=== PATIENT | female | born 1980 | race Caucasian/White ===

== ENCOUNTER 2017-01-26 04:58 | Observation (INO) | payer MEDICARE, MEDICAID ==
[2017-01-26] MEDS ORDERED: HYDROmorphone* 1 MG/ML 1 ML SYR IV ONE ×2 (05:03→05:44)
[2017-01-26] MEDS ORDERED: Ondansetron INJ* 2 MG/ML VIAL IV ONE ×2 (05:03→08:36)
[2017-01-26] MEDS: NS 0.9% 1000 ML* 2,000 ML IV ONE ×2 (05:26→07:17)
[2017-01-26 05:35] LABS: Hematocrit 41 % (35-47); Hemoglobin 13.9 g/dl (12.0-16.0); Mean Corpuscular HGB Conc 34 g/dl (31-36); Mean Corpuscular Hemoglobin 30 pg (27-31); Mean Corpuscular Volume 91 fL (80-97); Mean Platelet Volume 7 um3 (7.4-10.4); Red Blood Count 4.57 10^6/ul (4.0-5.4); Red Cell Distribution Width 19 % (10.5-15); White Blood Count 9.2 10^3/ul (3.5-10.8)
[2017-01-26 05:37] LABS: Add Diff/Slide Review? Slide Review Added; Comments Flag Yes
[2017-01-26] MEDS ORDERED: LORazepam INJ* 2 MG/ML 1 ML VIAL IV PUSH ONE (05:45)
[2017-01-26 05:46] LABS: BUN/Creatinine Ratio 23.1 (8-20); C Reactive Protein 2.79 mg/L (< 5.00); Calcium 9.4 mg/dL (8.6-10.3); EGFR African American 132.6 (>60); EGFR Non-African American 103.1 (>60); Magnesium 1.4 mg/dL (1.9-2.7); Potassium 3.5 mmol/L (3.5-5.0); Total Bilirubin 0.4 mg/dL (0.2-1.0)
[2017-01-26] MEDS ORDERED: Magnesium Sulfate 2 GM IV* 2 GM/50 ML BAG IVPB ONE (05:46)
[2017-01-26 06:40] LABS: Urine Bacteria Absent (Absent); Urine Bilirubin Negative (Negative); Urine Glucose Negative (Negative); Urine Nitrite Negative (Negative)
[2017-01-26 06:41] LABS: Urine Bacteria Absent (Absent); Urine Bilirubin Negative (Negative); Urine Glucose Negative (Negative); Urine Nitrite Negative (Negative)
--- NOTE | 2017-01-26 06:53 | ED ---
Arik Lebron Rebecca, scribed for Sue Marmolejo MD on 01/26/17 at 0507 . Abdominal Pain/Female - HPI Summary HPI Summary: Patient is a 36 y/o F BIBA who presents to ED c/o acute on chronic diffuse abdominal pain. Pain worsened 3 days ago and has been constant since onset. Pain is currently severe, ranked 10/10. Additionally c/o vomiting for 3 days. Sx aggravated and alleviated by nothing, unchanged by Zofran taken yesterday morning. PMHx ovarian CA for which her last chemotherapy treatment was in June,. She is not currently undergoing cheotherapy. PSHx ureteral stent placement. - History of Current Complaint Stated Complaint: NAUSEA VOMITING Hx Obtained From: Patient Hx Last Menstrual Period: age 25 yrs Onset/Duration: Gradual Onset, Still Present Severity Currently: Severe Pain Intensity: 10 Pain Scale Used: 0-10 Numeric Aggravating Factor(s): Nothing Alleviating Factor(s): Nothing Associated Signs and Symptoms: Positive: Vomiting Allergies/Adverse Reactions: Allergies Allergy/AdvReac Type Severity Reaction Status Date / Time Adhesive Tape Allergy Severe SKIN Verified 01/26/17 05:05 REACTION Carboplatin Allergy Severe Anaphylatic Verified 01/26/17 05:05 Shock Iohexol Allergy See Comment Verified 01/26/17 05:32 Latex Allergy Unknown Verified 01/26/17 05:05 Reaction Details Penicillins [PCN] Allergy Unknown Verified 01/26/17 05:05 Reaction Details Tapentadol [From Nucynta] Allergy Hallucinati Verified 01/26/17 05:05 ons Doxycycline AdvReac Intermediate Vomiting Verified 01/26/17 05:05 IV contrast Allergy Vomiting Uncoded 01/26/17 06:44 Home Medications: Home Medications HYDROmorphone TAB* [Dilaudid TAB*] 8 mg PO Q4H PRN 01/26/17 [History Confirmed 01/26/17] Methadone TAB* [Dolophine TAB*] 15 mg PO Q8H PRN 01/26/17 [History Confirmed ] PMH/Surg Hx/FS Hx/Imm Hx Respiratory History: Reports: Other Respiratory Problems/Disorders - PMHx Bronchitis - Cancer History Cancer Type, Location and Year: Ovarian - Surgical History Surgery Procedure, Year, and Place: PARTIAL HYSTERECTOMY. ABDOMINAL SURGERY 09/09. APPENDECTOMY. CHOLECYSTECTOMY. TONSILLECTOMY- JUN 2014. BILAT SALPINGECTOMY/OOPHERECTOMY. URETER STENT Infectious Disease History: Reports: Hx Shingles - age 26 Denies: Hx Clostridium Difficile, Hx Hepatitis, Hx Human Immunodeficiency Virus (HIV), Hx of Known/Suspected MRSA, Hx Tuberculosis, Hx Known/Suspected VRE , Hx Known/Suspected VRSA, History Other Infectious Disease - Family History Known Family History: Negative: Cardiac Disease - Social History Alcohol Use: None Substance Use Type: Reports: None Smoking Status (MU): Heavy Every Day Tobacco Smoker Type: Cigarettes Amount Used/How Often: 1/2 PPD Length of Time of Smoking/Using Tobacco: 21 Years Have You Smoked in the Last Year: Yes Review of Systems Constitutional: Negative Eyes: Negative ENT: Negative Cardiovascular: Negative Respiratory: Negative Positive: Abdominal Pain, Vomiting Positive: no symptoms reported Musculoskeletal: Negative Skin: Negative Neurological: Negative Psychological: Normal All Other Systems Reviewed And Are Negative: Yes Physical Exam - Summary Physical Exam Summary: General: Well appearing, moaning in pain Skin: Warm, Skin Color Reflects Adequate Perfusion, Dry Eyes: EOMI, BHAVIK ENT: Pharynx normal, TMs normal Neck: Supple, nontender Respiratory: CTA, breath sounds present, no rhonchi, no wheezes, no rales Cardiovascular: RRR, no murmur, no rub, no gallop Abdomen: Soft, nontender, Non-distended, no guarding, no rebound, multiple incisions on the abdomen Bowel: Not present Musculoskeletal: KATHLEEN, No edema Neuro: Sensory/motor intact, A&Ox3, CN intact 2-12 Psych: Affect/mood appropriate Triage Information Reviewed: Yes Vital Signs On Initial Exam: Initial Vitals Temp Pulse Resp BP Pulse Ox 98.4 F 90 16 132/79 99 01/26/17 05:03 01/26/17 05:03 01/26/17 05:03 01/26/17 05:03 01/26/17 05:03 Vital Signs Reviewed: Yes Diagnostics - Vital Signs Vital Signs Temp Pulse Resp BP Pulse Ox 01/26/17 06:30 109/58 01/26/17 06:15 75 107/51 98 01/26/17 06:10 16 01/26/17 06:03 78 100 01/26/17 06:01 120/81 01/26/17 06:00 18 01/26/17 05:30 80 131/84 99 01/26/17 05:28 20 01/26/17 05:23 76 100 01/26/17 05:21 105/86 01/26/17 05:03 98.4 F 90 16 132/79 99 - Laboratory Lab Results: Lab Results 01/26/17 01/26/17 01/26/17 Range/Units 05:15 05:15 05:15 WBC 9.2 (3.5-10.8) 10^3/ul RBC 4.57 (4.0-5.4) 10^6/ul Hgb 13.9 (12.0-16.0) g/dl Hct 41 (35-47) % MCV 91 (80-97) fL MCH 30 (27-31) pg MCHC 34 (31-36) g/dl RDW 19 H (10.5-15) % Plt Count 322 (150-450) 10^3/ul MPV 7 L (7.4-10.4) um3 Neut % (Auto) 80.2 (38-83) % Lymph % (Auto) 12.3 L (25-47) % [place] % (Auto) 6.3 (1-9) % Eos % (Auto) 0.7 (0-6) % Baso % (Auto) 0.5 (0-2) % Absolute Neuts (auto) 7.3 (1.5-7.7) 10^3/ul Absolute Lymphs (auto) 1.1 (1.0-4.8) 10^3/ul Absolute Monos (auto) 0.6 (0-0.8) 10^3/ul Absolute Eos (auto) 0.1 (0-0.6) 10^3/ul Absolute Basos (auto) 0.1 (0-0.2) 10^3/ul Absolute Nucleated RBC 0 10^3/ul Nucleated RBC % 0 Sodium 136 (133-145) mmol/L Potassium 3.5 (3.5-5.0) mmol/L Chloride 100 L (101-111) mmol/L Carbon Dioxide 24 (22-32) mmol/L Anion Gap 12 H (2-11) mmol/L BUN 15 (6-24) mg/dL Creatinine 0.65 (0.51-0.95) mg/dL Est GFR ( Amer) 132.6 (>60) Est GFR (Non-Af Amer) 103.1 (>60) BUN/Creatinine Ratio 23.1 H (8-20) Glucose 86 (70-100) mg/dL Lactic Acid 0.7 (0.5-2.0) mmol/L Calcium 9.4 (8.6-10.3) mg/dL Magnesium 1.4 L (1.9-2.7) mg/dL Total Bilirubin 0.40 (0.2-1.0) mg/dL AST 12 L (13-39) U/L ALT 10 (7-52) U/L Alkaline Phosphatase 80 (34-104) U/L C-Reactive Protein 2.79 (< 5.00) mg/L Total Protein 7.0 (6.4-8.9) g/dL Albumin 4.0 (3.2-5.2) g/dL Globulin 3.0 (2-4) g/dL Albumin/Globulin Ratio 1.3 (1-3) Lipase 16 (11.0-82.0) U/L Urine Color Urine Appearance Urine pH (5-9) Ur Specific [place] (1.010-1.030) Urine Protein (Negative) Urine Ketones (Negative) Urine Blood (Negative) Urine Nitrate (Negative) Urine Bilirubin (Negative) Urine Urobilinogen (Negative) Ur Leukocyte Esterase (Negative) Urine WBC (Auto) (Absent) Urine RBC (Auto) (Absent) Calcium Oxalate Crystal (Absent) Urine Bacteria (Absent) Urine Glucose (Negative) 01/26/17 01/26/17 Range/Units 06:20 06:22 WBC (3.5-10.8) 10^3/ul RBC (4.0-5.4) 10^6/ul Hgb (12.0-16.0) g/dl Hct (35-47) % MCV (80-97) fL MCH (27-31) pg MCHC (31-36) g/dl RDW (10.5-15) % Plt Count (150-450) 10^3/ul MPV (7.4-10.4) um3 Neut % (Auto) (38-83) % Lymph % (Auto) (25-47) % [place] % (Auto) (1-9) % Eos % (Auto) (0-6) % Baso % (Auto) (0-2) % Absolute Neuts (auto) (1.5-7.7) 10^3/ul Absolute Lymphs (auto) (1.0-4.8) 10^3/ul Absolute Monos (auto) (0-0.8) 10^3/ul Absolute Eos (auto) (0-0.6) 10^3/ul Absolute Basos (auto) (0-0.2) 10^3/ul Absolute Nucleated RBC 10^3/ul Nucleated RBC % Sodium (133-145) mmol/L Potassium (3.5-5.0) mmol/L Chloride (101-111) mmol/L Carbon Dioxide (22-32) mmol/L Anion Gap (2-11) mmol/L BUN (6-24) mg/dL Creatinine (0.51-0.95) mg/dL Est GFR ( Amer) (>60) Est GFR (Non-Af Amer) (>60) BUN/Creatinine Ratio (8-20) Glucose (70-100) mg/dL Lactic Acid (0.5-2.0) mmol/L Calcium (8.6-10.3) mg/dL Magnesium (1.9-2.7) mg/dL Total Bilirubin (0.2-1.0) mg/dL AST (13-39) U/L ALT (7-52) U/L Alkaline Phosphatase (34-104) U/L C-Reactive Protein (< 5.00) mg/L Total Protein (6.4-8.9) g/dL Albumin (3.2-5.2) g/dL Globulin (2-4) g/dL Albumin/Globulin Ratio (1-3) Lipase (11.0-82.0) U/L Urine Color Yellow Yellow Urine Appearance Cloudy Cloudy Urine pH 5.0 5.0 (5-9) Ur Specific [place] 1.026 1.025 (1.010-1.030) Urine Protein 2+(100 mg/dl) H 2+(100 mg/dl) H (Negative) Urine Ketones 2+ H 2+ H (Negative) Urine Blood 2+ H 3+ H (Negative) Urine Nitrate Negative Negative (Negative) Urine Bilirubin Negative Negative (Negative) Urine Urobilinogen Negative Negative (Negative) Ur Leukocyte Esterase 3+ H 2+ H (Negative) Urine WBC (Auto) 3+(>20/hpf) H 3+(>20/hpf) H (Absent) Urine RBC (Auto) 3+(>10/hpf) H 3+(>10/hpf) H (Absent) Calcium Oxalate Crystal Present H Present H (Absent) Urine Bacteria Absent Absent (Absent) Urine Glucose Negative Negative (Negative) Result Diagrams: 01/26/17 05:15 01/26/17 05:15 Lab Statement: Any lab studies that have been ordered have been reviewed, and results considered in the medical decision making process. - CT Abd/Pel CT CT Interpretation: Positive (See Comments) - Probable calcified subserosal perihepatic and perisplenic metasteses, which may be old. Anterior adbominal pelvic wall calcified masses are suspicious for metastases with possible peritoneal extension. Large amount of diffuse solid stool, may indicate fecal impaction. A sigmoid lesion is difficult to exclude without contrast. Possible diffuse peritoneal metastatic disease. No hydronephrosis. CT Interpretation Completed By: Radiologist Abdominal Pain Fem Course/Dx - Course Course Of Treatment: 36 yo female with metastatic ovarian cancer here with abdominal pain and vomiting. pt required 2mg of dilaudid and 1 mg of ativan to begin to control her pain, case was discussed with Dr. Glass he will have someone from hem/onc to see her this am. Pt will be signed out to Dr. Bull - Diagnoses Provider Diagnoses: Cancer related pain Discharge - Discharge Plan Condition: Stable Disposition: ADMITTED TO [facility] The documentation as recorded by the Arik zuniga Rebecca accurately reflects the service I personally performed and the decisions made by me, Sue Marmolejo MD.
[2017-01-26] MEDS ORDERED: HYDROmorphone* 2 MG/ML 1 ML SYR IV SLOW PU ONE (08:22)
[2017-01-26] MEDS ORDERED: Ondansetron INJ* 2 MG/ML VIAL IV PRN (09:08)
[2017-01-26] MEDS ORDERED: HYDROmorphone* 2 MG/ML 1 ML SYR IV SLOW PU PRN (09:08)
[2017-01-26] MEDS ORDERED: LORazepam INJ* 2 MG/ML 1 ML VIAL IV PUSH PRN (09:15)
--- NOTE | 2017-01-26 09:52 | RAD ---
CLINICAL HISTORY: Abdominal pain in a woman with a history of ovarian cancer. Relevant surgical history includes hysterectomy with bilateral salpingectomy and oopherectomy, appendectomy, cholecystectomy, ureteral stent placement and "abdominal surgery 09/09/2013" COMPARISON: Similar CT examination dated November 24, 2014 TECHNIQUE: Noncontrast CT examination of the abdomen and pelvis from the lung bases through the initial tuberosities. FINDINGS: VISUALIZED LUNG BASES: The lungs exhibit centrilobular emphysematous changes that appear advanced for the patient's age. Lung bases are otherwise clear without pleural effusions. ABDOMEN AND PELVIS: Unless otherwise specified comparisons made below reference the November 24, 2014 CT examination. Evaluation of the solid organs and vasculature is limited without intravenous contrast. Since the prior CT examination there is coarse calcification overlying the dome of the liver, best depicted in the coronal plane images (image 23 through 47) that has enlarged since the prior CT examination. In the left lobe of the liver abutting the falciform ligament is a focus of coarse calcification measuring 2.3 cm in greatest axial dimension not seen on the previous CT examination. At the posterior subcapsular liver (image 21 of 92 at likely segment 6 of the liver there is a 1.9 cm coarse calcification that was not seen on the previous CT examination. Along the medial margin of the spleen there is a focus of coarse calcification measuring approximately 1.3 cm that has grown from 3 mm on the previous CT examination. The spleen is otherwise homogenous in attenuation. The pancreas and adrenal glands are grossly normal in appearance within the limitations of a noncontrast CT exam. Surgical clips in the gallbladder fossa are consistent with the patient's history of cholecystectomy. The kidneys do not exhibit definite hydronephrosis. There are bilateral percutaneous nephrostomy stents as well as bilateral ureteral stents that appear to be appropriately positioned. There are surgical clips tracking along the right inguinal and iliac chain continuous with surgical clips seen in the right of midline retroperitoneum. There are also surgical clips at the left upper quadrant (image 35) adjacent to a focus of coarse calcification measuring 1.6 cm in greatest dimension, previously 6 mm. Soft tissue lesions with varying degrees of calcification are seen throughout the abdomen and pelvis since the previous CT examination. Between the anterior abdominal wall and subcutaneous fat at the right hemiabdomen there is a 1.5 cm soft tissue lesion with a mild peripheral rim of calcification (image 35). Slightly more superiorly and at the midline there is hyper attenuating lobular soft tissue density in the subcutaneous fat measuring 3.7 cm in length. Presumably at the umbilicus there is a mostly fat containing soft tissue nodule in the subcutaneous fat that distends the overlying dermis measuring 3 cm (image 47). At the low left of midline anterior abdominal wall there is a mixed attenuation soft tissue mass measuring 4.9 cm x 3.7 cm in the axial plane (image 68). This soft tissue mass appears to originate from within the abdominal wall musculature, replacing the abdominal wall musculature. It is contiguous with partially calcified material seen in the anteriormost peritoneal cavity. In the left hemipelvis there is a very poorly defined soft tissue mass immediately anterior to the rectum and posterior and slightly inferior to the urinary bladder measuring up to 4.7 x 7.1 cm in the axial plane. The anterior left-sided rib of this soft tissue mass is coarsely calcified. There is moderate ascites throughout much of the peritoneal cavity. Evaluation of the gastrointestinal tract is limited without oral contrast. The small bowel is very poorly defined but does not appear pathologically enlarged. There is a large amount of stool throughout the length of the colon and the colon is pathologically dilated up to 6 cm in diameter (for example coronal image 22 of 76). There is a large amount of gas in the rectum just above the anal sphincter. This appearance is more consistent with colonic ileus as opposed to focal obstruction. The abdominal aorta and iliac arteries are normal in course and diameter. There are no sinister bone lesions. IMPRESSION: 1. Consistent with the patient's reported oncologic history, there has been interval appearance of widespread partially calcified metastases involving the liver, abdominal wall and peritoneal cavity as well as mild to moderate degree of ascites. I anticipate the patient has had more CTs since the November 24, 2014 CT examination available for comparison at another institution. 2. There is no significant hydronephrosis in the presence of bilateral percutaneous nephrostomy tubes and bilateral ureteral stents. 3. The entire stool-filled colon is dilated with appearance more consistent with colonic ileus than focal obstruction.
[2017-01-26] MEDS ORDERED: Methadone TAB* 10 MG PO SCH ×2 (10:00)
[2017-01-26] MEDS ORDERED: MAGNESIUM SULFATE IVPB ONE (10:00)
[2017-01-26] MEDS ORDERED: NS 0.9% IVPB ONE (10:00)
[2017-01-26] MEDS: Metoclopramide IV* 5 MG/ML 2 ML VIAL IV SCH ×3 (11:00→23:46)
[2017-01-26] MEDS: Famotidine IV* 10 MG/ML 2 ML (20 mg) IV SCH (11:00)
[2017-01-26] MEDS: Enoxaparin(*) 40 MG/0.4 ML SYR SUBCUT SCH (11:01)
[2017-01-26] MEDS: Methadone TAB* 10 MG PO SCH ×3 (11:01→23:45)
[2017-01-26] MEDS: HYDROmorphone* 2 MG/ML 1 ML SYR IV SLOW PU PRN ×6 (11:36→23:54)
[2017-01-26] MEDS ORDERED: NS 0.9% 1000 ML* 1,000 ML IV SCH (15:00)
[2017-01-26] MEDS ORDERED: Nicotine Patch Removal NOTE PATCH OFF SCH (20:00)
[2017-01-26] MEDS ORDERED: Mouth Piece, Nicotine* 1 EACH CARTRIDGE INH ONE (21:00)
[2017-01-26] MEDS ORDERED: Nicotine Inhaler* 10 MG AMP Q2H PRN CRAVING INH (21:00)
[2017-01-27] MEDS: HYDROmorphone* 2 MG/ML 1 ML SYR IV SLOW PU PRN ×5 (01:51→11:16)
[2017-01-27 04:18] VITALS: BP 102/56
[2017-01-27] MEDS: Methadone TAB* 10 MG PO SCH ×2 (06:03→11:03)
[2017-01-27] MEDS: Metoclopramide IV* 5 MG/ML 2 ML VIAL IV SCH (06:04)
[2017-01-27] MEDS ORDERED: Nicotine PATCH 21 MG/24 HR* PATCH TRANSDERM SCH (08:00)
[2017-01-27] MEDS: Enoxaparin(*) 40 MG/0.4 ML SYR SUBCUT SCH (09:10)
[2017-01-27] MEDS: Famotidine IV* 10 MG/ML 2 ML (20 mg) IV SCH (09:14)
[2017-01-27 09:52] LABS: Albumin 3.2 g/dL (3.2-5.2); BUN/Creatinine Ratio 15.3 (8-20); Calcium 8.3 mg/dL (8.6-10.3); EGFR African American 148.3 (>60); EGFR Non-African American 115.3 (>60); Globulin 2.3 g/dL (2-4); Potassium 3.6 mmol/L (3.5-5.0); Total Bilirubin 0.4 mg/dL (0.2-1.0); Total Protein 5.5 g/dL (6.4-8.9)
--- NOTE | 2017-01-27 10:32 | DS ---
- Discharge Summary BRIEF OBV DISCHARGE SUMMARY ADMIT DATE: 01/26/2017 DISCHARGE DATE: 01/27/2017 DISCHARGE DIAGNOSIS: 1. Ileus 2. metastatic end stage ovarian cancer 3. intractable pain DISCHARGE MEDICATIONS: Home Medications Medication Instructions Recorded Confirmed Type HYDROmorphone TAB* [Dilaudid Tab*] 8 mg PO Q4H PRN 01/26/17 01/26/17 History Methadone TAB* [Dolophine TAB*] 15 mg PO Q8H PRN 01/26/17 01/26/17 History PATIENT STATES THAT SHE HAS ENEMAS AT HOME Hospital course: see full admit H+P. This am Chikis has not had a bowel movement and is still nauseous but very much wants to be discharged. She reports that she understands that she is dying and has no further treatment options. She is interested in an outpatient hospice consult, but did not want to stay for one. Her nephrostomy tubes were clamped over night and her creatinine remained stable. I offered to have them removed today but she reports that she has an appointment at 3:45 with her urologist, Dr. Durham and wants to wait until them. I have encouraged her to stay inpatient until we can get her bowels moving, however she reports that it is very important for her to be able to leave to smoke marijuana as this is the only thing that helps her. She does not want marinol. She requested discharge and so will be discharged at her request now. >30 mins spent, >50% in face to face counseling
== END 2017-01-27 11:30 | disposition home or self-care (01) ==
LOC: ED 04:58 → MED 09:08 → INTOOBSV 09:08
PROVIDERS: ADMIT Internal Medicine Hematology & Oncology; ATTEND Internal Medicine Hematology & Oncology
DX: K56.7 Ileus, unspecified (principal); C56.9 Malignant neoplasm of unspecified ovary; R10.9 Unspecified abdominal pain; R11.10 Vomiting, unspecified; F17.210 Nicotine dependence, cigarettes, uncomplicated
CPT/HCPCS: 36415; 74176; 80053; 81003; 81015; 83605; 83690; 83735; 85025; 86140; 87040; 87086; 96374; 96375; 99223; 99283; A9270-GY; G0378; J1170; J1642; J1650; J2060; J2405; J3475

== ENCOUNTER 2017-02-02 08:07 | Inpatient (IN) | payer MEDICARE, MEDICAID ==
[2017-02-02] MEDS ORDERED: LORazepam INJ* 2 MG/ML 1 ML VIAL IV ONE (08:51)
[2017-02-02] MEDS ORDERED: Ondansetron INJ* 2 MG/ML VIAL IV ONE (08:51)
[2017-02-02] MEDS ORDERED: NS 0.9% 1000 ML* 1,000 ML IV ONE (08:51)
[2017-02-02] MEDS ORDERED: HYDROmorphone* 1 MG/ML 1 ML SYR IV ONE ×2 (08:51→09:51)
[2017-02-02 09:41] LABS: Hematocrit 39 % (35-47); Mean Corpuscular HGB Conc 34 g/dl (31-36); Mean Corpuscular Hemoglobin 32 pg (27-31); Mean Corpuscular Volume 94 fL (80-97); Mean Platelet Volume 7 um3 (7.4-10.4); Red Blood Count 4.11 10^6/ul (4.0-5.4); Red Cell Distribution Width 17 % (10.5-15); White Blood Count 8.7 10^3/ul (3.5-10.8)
[2017-02-02 09:56] LABS: Albumin 3.8 g/dL (3.2-5.2); BUN/Creatinine Ratio 24.6 (8-20); C Reactive Protein 1.61 mg/L (< 5.00); EGFR African American 142.7 (>60); Globulin 2.6 g/dL (2-4); Potassium 3.6 mmol/L (3.5-5.0); Total Bilirubin 0.4 mg/dL (0.2-1.0); Total Protein 6.4 g/dL (6.4-8.9)
[2017-02-02] MEDS ORDERED: HYDROmorphone* 1 MG/ML 1 ML SYR IV SLOW PU ONE (10:49)
[2017-02-02] MEDS ORDERED: LORazepam INJ* 2 MG/ML 1 ML VIAL IV PUSH ONE (10:49)
[2017-02-02 10:52] LABS: Urine Bacteria 1+ (Absent); Urine Bilirubin Negative (Negative); Urine Glucose Negative (Negative); Urine Nitrite Negative (Negative)
[2017-02-02] MEDS ORDERED: NS 0.9% 1000 ML* 1,000 ML IV SCH (11:00)
[2017-02-02] MEDS ORDERED: Sodium Phosphate ADULT ENEMA* 118 ml bottle PR ONE (11:10)
--- NOTE | 2017-02-02 11:11 | ED ---
Sharon Lebron Thomas, scribed for Lance Juarez MD on 02/02/17 at 0853 . Abdominal Pain/Female - HPI Summary HPI Summary: Pt is a 36 y/o with a Hx of Ovarian CA presenting to the ED c/o abd pain. She additionally c/o constipation and nausea. She has been unable to defecate for 6 weeks. She was admitted to [facility] 7 days ago for stomach pain. She has been unable to take pain meds since yesterday. She is not in hospice or palliative care. She was diagnosed with CA 18 years ago and was recently given a terminal diagnosis. - History of Current Complaint Chief Complaint: EDAbdPain Stated Complaint: constipation-6WKS Time Seen by Provider: 02/02/17 08:31 Hx Obtained From: Patient Hx Last Menstrual Period: age 25 yrs Timing: Constant Severity Currently: Severe Pain Intensity: 8 Pain Scale Used: 0-10 Numeric Aggravating Factor(s): Nothing Alleviating Factor(s): Nothing Associated Signs and Symptoms: Positive: Nausea, Other: - POS: constipation Allergies/Adverse Reactions: Allergies Allergy/AdvReac Type Severity Reaction Status Date / Time Adhesive Tape Allergy Severe SKIN Verified 02/02/17 08:27 REACTION Carboplatin Allergy Severe Anaphylatic Verified 02/02/17 08:27 Shock Iohexol Allergy See Comment Verified 02/02/17 08:27 Latex Allergy Unknown Verified 02/02/17 08:27 Reaction Details Penicillins [PCN] Allergy Unknown Verified 02/02/17 08:27 Reaction Details Tapentadol [From Nucynta] Allergy Hallucinati Verified 02/02/17 08:27 ons Doxycycline AdvReac Intermediate Vomiting Verified 02/02/17 08:27 IV contrast Allergy Vomiting Uncoded 01/26/17 06:44 Home Medications: Home Medications Ondansetron TAB* [Zofran 4 MG Tab*] 8 mg PO Q6H 02/02/17 [History Confirmed ] PMH/Surg Hx/FS Hx/Imm Hx Previously Healthy: No Respiratory History: Reports: Other Respiratory Problems/Disorders - PMHx Bronchitis Denies: Hx Chronic Obstructive Pulmonary Disease (COPD) GI History: Reports: Hx Gall Bladder Disease History: Reports: Other Problems/Disorders - HYDRONEPHROSIS, BILAT NEPHROSTOMIES, UTRERAL STENT Musculoskeletal History: Reports: Hx Back Problems Sensory History: Reports: Hx Contacts or Glasses Denies: Hx Hearing Aid Opthamlomology History: Reports: Hx Contacts or Glasses Neurological History: Reports: Hx Transient Ischemic Attacks (TIA) - PER PT. Denies: Hx Migraine, Hx Nerve Disease Psychiatric History: Reports: Hx Anxiety Denies: Hx Depression - Cancer History Cancer Type, Location and Year: Ovarian - METS - Surgical History Surgery Procedure, Year, and Place: PARTIAL HYSTERECTOMY. ABDOMINAL SURGERY 09/09. APPENDECTOMY. CHOLECYSTECTOMY. TONSILLECTOMY- JUN 2014. BILAT SALPINGECTOMY/OOPHERECTOMY. URETER STENT. bilat nephrostomies Infectious Disease History: No Infectious Disease History: Reports: Hx Clostridium Difficile, Hx Shingles - age 26 Denies: Hx Hepatitis, Hx Human Immunodeficiency Virus (HIV), Hx of Known/ Suspected MRSA, Hx Tuberculosis, Hx Known/Suspected VRE, Hx Known/Suspected VRSA , History Other Infectious Disease, Traveled Outside the in Last 30 Days - Family History Known Family History: Negative: Cardiac Disease - Social History Alcohol Use: None Substance Use Type: Reports: Marijuana Smoking Status (MU): Heavy Every Day Tobacco Smoker Type: Cigarettes Amount Used/How Often: 1/2 PPD Length of Time of Smoking/Using Tobacco: 21 Years Have You Smoked in the Last Year: Yes Review of Systems Constitutional: Negative Eyes: Negative ENT: Negative Cardiovascular: Negative Respiratory: Negative Positive: Abdominal Pain, Nausea, Other - POS: constipation, 6 weeks Genitourinary: Negative Musculoskeletal: Negative Skin: Negative Neurological: Negative Psychological: Normal All Other Systems Reviewed And Are Negative: Yes Physical Exam Triage Information Reviewed: Yes Vital Signs On Initial Exam: Initial Vitals Temp Pulse Resp BP Pulse Ox 98.5 F 103 22 122/90 96 02/02/17 08:15 02/02/17 08:15 02/02/17 08:15 02/02/17 08:15 02/02/17 08:15 Vital Signs Reviewed: Yes Appearance: Positive: Pain Distress - obvious distress Skin: Positive: Warm, Skin Color Reflects Adequate Perfusion, Dry Head/Face: Positive: Normal Head/Face Inspection Eyes: Positive: Normal ENT: Positive: Normal ENT inspection Neck: Positive: Supple, Nontender Abdomen Description: Positive: Nontender Bowel Sounds: Positive: Hyperactive Musculoskeletal: Positive: Normal, Strength/ROM Intact Neurological: Positive: Normal, Sensory/Motor Intact, Alert, Oriented to Person Place, Time, CN Intact II-III Psychiatric: Positive: Normal, Affect/Mood Appropriate Diagnostics - Vital Signs Vital Signs Temp Pulse Resp BP Pulse Ox 02/02/17 08:30 93 123/91 97 02/02/17 08:26 87 98 02/02/17 08:25 134/88 02/02/17 08:18 98.5 F 102 22 122/90 96 02/02/17 08:15 98.5 F 103 22 122/90 96 - Laboratory Lab Results: Lab Results 02/02/17 02/02/17 02/02/17 Range/Units 09:30 09:30 10:05 WBC 8.7 (3.5-10.8) 10^3/ul RBC 4.11 (4.0-5.4) 10^6/ul Hgb 13.0 (12.0-16.0) g/dl Hct 39 (35-47) % MCV 94 (80-97) fL MCH 32 H (27-31) pg MCHC 34 (31-36) g/dl RDW 17 H (10.5-15) % Plt Count 264 (150-450) 10^3/ul MPV 7 L (7.4-10.4) um3 Neut % (Auto) 83.5 H (38-83) % Lymph % (Auto) 9.7 L (25-47) % [place] % (Auto) 5.2 (1-9) % Eos % (Auto) 0.9 (0-6) % Baso % (Auto) 0.7 (0-2) % Absolute Neuts (auto) 7.2 (1.5-7.7) 10^3/ul Absolute Lymphs (auto) 0.8 L (1.0-4.8) 10^3/ul Absolute Monos (auto) 0.4 (0-0.8) 10^3/ul Absolute Eos (auto) 0.1 (0-0.6) 10^3/ul Absolute Basos (auto) 0.1 (0-0.2) 10^3/ul Absolute Nucleated RBC 0 10^3/ul Nucleated RBC % 0 Sodium 133 (133-145) mmol/L Potassium 3.6 (3.5-5.0) mmol/L Chloride 104 (101-111) mmol/L Carbon Dioxide 26 (22-32) mmol/L Anion Gap 3 (2-11) mmol/L BUN 15 (6-24) mg/dL Creatinine 0.61 (0.51-0.95) mg/dL Est GFR ( Amer) 142.7 (>60) Est GFR (Non-Af Amer) 111.0 (>60) BUN/Creatinine Ratio 24.6 H (8-20) Glucose 98 (70-100) mg/dL Calcium 9.0 (8.6-10.3) mg/dL Total Bilirubin 0.40 (0.2-1.0) mg/dL AST 12 L (13-39) U/L ALT 10 (7-52) U/L Alkaline Phosphatase 63 (34-104) U/L C-Reactive Protein 1.61 (< 5.00) mg/L Total Protein 6.4 (6.4-8.9) g/dL Albumin 3.8 (3.2-5.2) g/dL Globulin 2.6 (2-4) g/dL Albumin/Globulin Ratio 1.5 (1-3) Urine Color Yellow Urine Appearance Cloudy Urine pH 6.0 (5-9) Ur Specific [place] 1.019 (1.010-1.030) Urine Protein 2+(100 mg/dl) H (Negative) Urine Ketones Negative (Negative) Urine Blood 2+ H (Negative) Urine Nitrate Negative (Negative) Urine Bilirubin Negative (Negative) Urine Urobilinogen Negative (Negative) Ur Leukocyte Esterase 3+ H (Negative) Urine WBC (Auto) 3+(>20/hpf) H (Absent) Urine RBC (Auto) 3+(>10/hpf) H (Absent) Urine Bacteria 1+ H (Absent) Urine Glucose Negative (Negative) Result Diagrams: 02/02/17 09:30 02/02/17 09:30 Lab Statement: Any lab studies that have been ordered have been reviewed, and results considered in the medical decision making process. Abdominal Pain Fem Course/Dx - Course Course Of Treatment: Ms. Augustin was clearly in pain and quite anxious about it and was treated symptomatically int the ED. Oncology was contacted for admission. She really needs hospice care. - Diagnoses Provider Diagnoses: Abdominal pain, Metastatic adenocarcinoma of ovary - Provider Notifications Discussed Care Of Patient With: Hollis Glass Time Discussed With Above Provider: 09:53 Instructed by Provider To: Other - Dr. Glass, oncology, discussed case. Discharge - Discharge Plan Condition: Stable Disposition: ADMITTED TO [facility] documentation as recorded by the Sharon zuniga Thomas accurately reflects the service I personally performed and the decisions made by me, Lance Juarez MD.
--- NOTE | 2017-02-02 11:43 | RAD ---
INDICATION: Paralytic ileus. COMPARISON: Comparison is made with a prior CT of the abdomen and pelvis from January 26, 2017. TECHNIQUE: Frontal supine films of the abdomen were obtained. FINDINGS: The small bowel and colon appear nondistended. There are bilateral nephrostomy tubes and ureteral stents which demonstrate normal course. There are multiple calcifications in the right upper quadrant. There are multiple surgical clips in the right upper quadrant and bilaterally in the mid and lower abdomen. IMPRESSION: 1. NO EVIDENCE FOR OBSTRUCTION OR PARALYTIC ILEUS. 2. BILATERAL NEPHROSTOMY TUBES AND URETERAL STENTS.
[2017-02-02] MEDS ORDERED: cefTRIAXone(*) 1 GM in NS 0.9% 50 ML* 50 ML IVPB SCH (12:30)
[2017-02-02] MEDS: Metoclopramide IV* 5 MG/ML 2 ML VIAL IV SCH ×5 (12:37→23:06)
[2017-02-02] MEDS: Methadone TAB* 10 MG PO PRN (12:58)
--- NOTE | 2017-02-02 14:33 | PN ---
Progress Note - Progress Note Date of Service: 02/02/17 SOAP: Subjective: []See admission note for full H&P. Pt. seen to discuss code status as nursing very worried about COMMUNICATIONS PROJECT MANAGER with hypotension and full code status. Previous discussion limited d/t pt. acute pain. Pain better controlled with IV dilaudid, but has needed 1 mg almost every hour. Very aware of advanced disease, biggest concern is her abd. pain and constipation. Wants to "get better" to be with her daughter. Knows options for therapy very limited. Understands what a DNR is, denies questions. She is tearful, but understanding of current status. Wants very much to have pain relief stating "I just can't live like this." Objective: [] Vital Signs Temp Pulse Resp BP Pulse Ox 98.3 F 60 14 100/59 98 02/02/17 13:56 02/02/17 13:56 02/02/17 13:56 02/02/17 13:56 02/02/17 13:56 A&Ox3, EOMI, PERRLA, neuro grossly non-focal Tearful but communicating clearly Resp. even and non-labored Laboratory Results - last 24 hr 02/02/17 02/02/17 02/02/17 09:30 09:30 10:05 WBC 8.7 RBC 4.11 Hgb 13.0 Hct 39 MCV 94 MCH 32 H MCHC 34 RDW 17 H Plt Count 264 MPV 7 L Neut % (Auto) 83.5 H Lymph % (Auto) 9.7 L Ramsey % (Auto) 5.2 Eos % (Auto) 0.9 Baso % (Auto) 0.7 Absolute Neuts (auto) 7.2 Absolute Lymphs (auto) 0.8 L Absolute Monos (auto) 0.4 Absolute Eos (auto) 0.1 Absolute Basos (auto) 0.1 Absolute Nucleated RBC 0 Nucleated RBC % 0 Sodium 133 Potassium 3.6 Chloride 104 Carbon Dioxide 26 Anion Gap 3 BUN 15 Creatinine 0.61 Est GFR ( Amer) 142.7 Est GFR (Non-Af Amer) 111.0 BUN/Creatinine Ratio 24.6 H Glucose 98 Calcium 9.0 Total Bilirubin 0.40 AST 12 L ALT 10 Alkaline Phosphatase 63 C-Reactive Protein 1.61 Total Protein 6.4 Albumin 3.8 Globulin 2.6 Albumin/Globulin Ratio 1.5 Urine Color Yellow Urine Appearance Cloudy Urine pH 6.0 Ur Specific Orange 1.019 Urine Protein 2+(100 mg/dl) H Urine Ketones Negative Urine Blood 2+ H Urine Nitrate Negative Urine Bilirubin Negative Urine Urobilinogen Negative Ur Leukocyte Esterase 3+ H Urine WBC (Auto) 3+(>20/hpf) H Urine RBC (Auto) 3+(>10/hpf) H Urine Bacteria 1+ H Urine Glucose Negative Assessment: []36 yo female with advanced ovarian cancer here for pain control requiring very high doses of narcotics. Long discussion with pt. regarding code status. Plan: []DNR See admission note for further plan of care Additional 20 min. spent counseling pt. and discussing plan of care
[2017-02-02] MEDS: HYDROmorphone PCA* 20 MG/20 ML PCA.SYRING PCA SCH ×2 (14:37→23:16)
[2017-02-02] MEDS ORDERED: LORazepam TAB(*) 1 MG PO PRN (22:38)
[2017-02-02] MEDS: Nicotine PATCH 21 MG/24 HR* PATCH TRANSDERM SCH (23:05)
[2017-02-02] MEDS: Ondansetron INJ* 2 MG/ML VIAL IV PRN (23:41)
[2017-02-03] MEDS: Metoclopramide IV* 5 MG/ML 2 ML VIAL IV SCH ×7 (04:10→19:56)
[2017-02-03] MEDS: HYDROmorphone PCA* 20 MG/20 ML PCA.SYRING PCA SCH ×4 (05:07→22:00)
[2017-02-03] MEDS: Ondansetron INJ* 2 MG/ML VIAL IV PRN ×3 (05:29→18:01)
[2017-02-03] MEDS: Nicotine PATCH 21 MG/24 HR* PATCH TRANSDERM SCH (08:34)
[2017-02-03] MEDS ORDERED: PEG 3000 GI LAVAGE* 1 GALLON PO ONE (09:41)
[2017-02-03] MEDS ORDERED: NS 0.9% 1000 ML* 1,000 ML IV SCH (10:57)
[2017-02-03] MEDS: Sodium Phosphate ADULT ENEMA* 118 ml bottle PR PRN ×2 (12:20→23:07)
[2017-02-03] MEDS: Nicotine Inhaler* 10 MG AMP Q2H PRN CRAVING INH ×2 (15:31→19:57)
[2017-02-03] MEDS: LORazepam INJ* 2 MG/ML 1 ML VIAL IV PUSH PRN ×2 (15:37→19:55)
[2017-02-03] MEDS ORDERED: Mouth Piece, Nicotine* 1 EACH CARTRIDGE INH ONE (16:00)
--- NOTE | 2017-02-03 17:02 | CONS ---
CC: SHIRLENE Rolle; Gayla Kowalski NP * PALLIATIVE CARE CONSULTATION: DATE OF CONSULTATION: 02/03/17 PRIMARY CARE PROVIDER: SHIRLENE Rolle. REFERRING PROVIDER: Gayla Kowalski NP. HOSPITAL COURSE: This is a 36-year-old female with advanced metastatic ovarian cancer, who presents as a direct admission from oncology office with worsening abdominal pain. The patient was just admitted for 24 hours on 01/26/17 for similar symptoms. She states she left urgently because she wanted to go attend a graduation. She states that she has been battling with abdominal pain, constipation and not having a bowel movement for several months. She states she was at [facility] in [facility] trying to work on a bowel regimen to allow her to have bowel movements and alleviate her discomfort. She states that she has not been passing any gas, although when she came in last evening they gave her a fleet enema and she did pass flatus. She denied having a bowel movement. Per the nursing staff, she did have a small firm stool. She states she is nauseous daily and constantly and has vomiting almost daily as well. She has had minimal intake due to the significant abdominal discomfort. She has a hard time taking medications orally a bowel regimen due to her significant nausea. She states she was at [facility] where they tried a subcutaneous injection for her abdominal discomfort and she states she did not tolerate this medication at all. She states back in May she was at [facility] and they were worried that she was going to have a perforated abdomen. She denies any urinary complaints at this time. No chest pain or shortness of breath. We also spoke at length about her goals of care. She states she wants to get home and be with her daughter and be present for as long as she can. We talked about her MOLST form and she became very tearful, upset and states that she does not want to and she was very upset by the bracelet on her wrist. She is agreeable to a do not resuscitate in the chart. She did not want to talk about intubation at this time, but the bracelet on her wrist is very distressing to her. We talked at length about her social support at home. Her mother has, according to her, lung and brain cancer despite getting chemo and radiation, who is helping care for her 4-year-old daughter. She states her fiance is not a very supportive fiance and not around as much. She does have some friends but they are not as informed, as she has not felt comfortable speaking with them about everything going on. She is concerned that she is not getting enough Ativan while she is here and she is very tearful and anxious to feel better so that she can get home. The patient has had a significant amount of weight loss and decreased appetite as mentioned. Otherwise, review of systems is negative. PAST MEDICAL HISTORY: 1. Advanced ovarian cancer, status post chemo and surgery. 2. Recurrent small bowel obstruction. 3. Chronic pain. 4. Anxiety. 5. Depression. 6. History of hydronephrosis and obstruction, has ureteral stents and nephrostomy tube is in place, which are clamped off at this time. 7. History of C. diff. 8. History of recent admission as mentioned this month for similar presentation of abdominal pain and constipation. INPATIENT MEDICATIONS: 1. Dilaudid PRIOR AUTHORIZATION TECHNICIAN. 2. Ativan 1 mg p.o. q.6 hours as needed. 3. Reglan 10 mg IV q.3 hours. 4. Normal saline at 25 cc an hour. 5. Nicotine patch. 6. Zofran 4 mg IV q.4 hours as needed. 7. Famotidine IV daily. 8. Ceftriaxone 1 g every 24 hours. 9. Methadone 50 mg p.o. q.8 hours as needed. Home medication regimen: 1. Zofran 4 mg to 8 mg p.o. q.6 hours as needed. 2. Methadone 50 mg p.o. q.8 hours as needed. 3. Dilaudid 4 mg to 8 mg every 8 hours as needed. ALLERGIES: ADHESIVE TAPE, CARBOPLATIN, LATEX, PENICILLIN, TAPENTADOL, DOXYCYCLINE AND CONTRAST. FAMILY HISTORY: As mentioned, her mother with lung and brain cancer, status post chemo and radiation. Her father at age 39 from the small cell lung carcinoma. SOCIAL HISTORY: The patient lives with her fiance and her daughter who is 4 years old. Her fiance is the father of her child. He also has a 10-year-old. She states her mother as mentioned who has cancer, takes care of her while she is sick. She does have a history of smoking. No alcohol use. Her healthcare proxy is her mother. She does not have a secondary proxy at this time. She does admit to marijuana use daily for her nausea and chronic pain. REVIEW OF SYSTEMS: As mentioned in the HPI. PHYSICAL EXAMINATION: Vital Signs: Temp 97.6, pulse rate 71, respiratory rate 12, oxygen saturation 96% on room air, and blood pressure 108/64. General: Frail female in no acute distress. She is alert and interactive. Head is normocephalic. Pupils equal and reactive, anicteric. Oropharynx: Mucous membranes are moist. Neck is supple. No lymphadenopathy. Cardiac: Regular, rate and rhythm. Soft systolic murmur heard throughout. Respiratory: Clear to auscultation. No wheezes, rhonchi, or rales. Abdomen: Minimal hypoactive bowel sounds, diffuse firmness. She has clear palpable masses in various locations in the periumbilical area, suprapubic area and mainly in the left lower quadrant area. Extremities: No clubbing, cyanosis or edema. Neurologic : Alert and oriented x3. No focal neurological deficits. LABORATORY DATA: White count 8.7, hemoglobin 13, hematocrit 39, platelets 264, 000. Sodium 133, potassium 3.6, chloride 104, bicarb 26, BUN 15, creatinine 0.61 , albumin is 3.8. RADIOGRAPHIC DATA: Abdominal x-ray on 02/02/17, no evidence for obstruction or paralytic ileus, bilateral nephrostomy tubes and ureteral stents. She had an abdomen and pelvis CT on the , showed consistent with widespread partially calcified metastasis involving the liver, abdominal wall, and peritoneal cavity as well as [id number] degree of ascites. No significant hydronephrosis __ ____ and bilateral ureteral stents. Entire stool filled colon consistent with colonic, ileal and focal obstruction. ASSESSMENT: This is a 36-year-old female with advanced ovarian cancer who presents again to the hospital with significant abdominal pain, distention and constipation/obstipation. The patient feels her symptoms would be dramatically improved if she was able to have a significant bowel movement. I did speak with Dr. Smart who recommended continuing the fleet enema up to 2 to 4 a day and to have her sip on GoLYTELY throughout the day as tolerated and I spoke with pharmacy as well as Dr. Smart about getting Relistor, the oral form, for her to start taking in the morning. This probably will be better tolerated than the subcu injection she received at [facility]. I would follow up with abdominal film tomorrow to reassess and make sure no obstruction has developed. I also did start her on Ativan 0.5 q.4 hours as needed, as the patient is very tearful and anxious and concerned about the absorptive capabilities in the setting of her condition. Dr. Smart did state that he would formally do a consult if there was no improvement with this bowel regimen as mentioned above. Apurva, our public health social worker will follow up with her as well. The patient was worried about the custody of her daughter when she did pass away and I stated that we could follow up regarding those issues as well while she is here. The patient states that she is in no nunez to leave. She wants to get this addressed and to go home with hospice support with improvement of her symptoms. Thank you for this consultation. I will follow along with you. TIME SPENT: Greater than 90 minutes spent doing the consultation, more than half the time spent in direct patient contact. [id number]/[facility] #: [id number] EVANGELISTA
[2017-02-03] MEDS ORDERED: Nicotine PATCH 21 MG/24 HR* PATCH TRANSDERM SCH (21:00)
[2017-02-04] MEDS: Ondansetron INJ* 2 MG/ML VIAL IV PRN ×2 (00:24→04:30)
[2017-02-04] MEDS: LORazepam INJ* 2 MG/ML 1 ML VIAL IV PUSH PRN ×3 (00:26→08:30)
[2017-02-04] MEDS: Metoclopramide IV* 5 MG/ML 2 ML VIAL IV SCH ×4 (00:28→08:29)
[2017-02-04] MEDS: Methadone TAB* 10 MG PO PRN (01:20)
[2017-02-04] MEDS: HYDROmorphone PCA* 20 MG/20 ML PCA.SYRING PCA SCH ×2 (03:23→09:48)
[2017-02-04 07:16] VITALS: BP 105/66
[2017-02-04] MEDS: Sodium Phosphate ADULT ENEMA* 118 ml bottle PR PRN (07:48)
[2017-02-04] MEDS: Nicotine Inhaler* 10 MG AMP Q2H PRN CRAVING INH ×2 (08:50→11:40)
[2017-02-04] MEDS ORDERED: Nicotine Patch Removal NOTE PATCH OFF SCH (09:00)
[2017-02-04] MEDS ORDERED: HYDROmorphone TAB* 4 MG PO PRN (10:42)
[2017-02-04] MEDS ORDERED: LORazepam TAB(*) 1 MG PO PRN (10:44)
--- NOTE | 2017-02-04 10:52 | PN ---
Progress Note - Progress Note Date of Service: 02/04/17 SOAP: Subjective: []Pain still 7/10 near constant, though states better then when she came in. Has been moving bowels very small amounts. Lots of mucous. Pain better with each little movement. Mild nausea without emesis, eating regular foods without difficulty. Wants to go home. Still using AMBULATORY CARE COORDINATOR a lot, states understanding that she can't go home with AMBULATORY CARE COORDINATOR unless she had hospice in place. Admitted to last night that she did not want hospice d/t concerns regarding daughter's guardianship. Medications (adjusted today): Heparin Sodium (Porcine) (Heparin Flush Port (Ivad)) 5 ml FLUSH DAILY JACQUELINE PRN Reason: Protocol Last Admin: 02/04/17 08:31 Dose: 5 ml Hydromorphone HCl (Dilaudid Tab*) 8 mg PO Q4H PRN PRN Reason: PAIN Famotidine 20 mg/ Sodium (Chloride) 102 mls @ 408 mls/hr IVPB DAILY [facility] Stop: 02/04/17 12:55 Last Admin: 02/04/17 08:29 Dose: 408 mls/hr Lorazepam (Ativan Tab(*)) 1 mg PO Q4H PRN PRN Reason: SLEEP/ANXIETY Methadone HCl (Dolophine Tab*) 15 mg PO Q6H [facility] Metoclopramide HCl (Reglan Tab*) 10 mg PO AC [facility] Nicotine (Nicotine Patch 21 Mg/24 Hr*) 1 patch TRANSDERM 2100 JACQUELINE Last Admin: 02/04/17 00:33 Dose: 1 patch Nicotine (Nicotine Inhaler*) 10 mg INH Q2H PRN PRN Reason: CRAVING Last Admin: 02/04/17 08:50 Dose: 10 mg Omeprazole (Prilosec Cap*) 20 mg PO DAILY@0600 [facility] Ondansetron HCl (Zofran Inj*) 4 mg IV Q4H PRN PRN Reason: NAUSEA Last Admin: 02/04/17 04:30 Dose: 4 mg Pharmacy Profile Note (Nicotine Patch Removal Note*) 1 note PATCH OFF 0900 [facility] Last Admin: 02/04/17 08:45 Dose: Not Given Sodium Biphosphate/Sodium Phosphate (Fleet Enema*) 1 bottle NM Q8HR PRN PRN Reason: CONSTIPATION Last Admin: 02/04/17 07:48 Dose: 1 bottle Objective: [] Vital Signs Temp Pulse Resp BP Pulse Ox 98.0 F 86 16 105/66 98 02/04/17 07:15 02/04/17 07:15 02/04/17 09:48 02/04/17 07:15 02/04/17 09:00 A&Ox3, sitting upright and communicating clearly. Easily frustrated, but not tearful. MERAZ and ambulates in room independently HRR, S1S2 LS clear, resp even and non-labored Hypoactive BS, abd. firm and tender, +tumors Assessment: []36 yo female with advanced ovarian cancer currently inpatient d/t intractable pain, nausea, and constipation without obstruction. Plan: []1. Constipation: severe likely r/t peritoneal mets. Encouraged good PO intake and will cont. Fleets Enema TID, golytly sips throughout the day, and add soap suds enema with repeat x1 if needed as well as starting colace 200 mg TID. 2. Pain: malignant, poorly controlled however pt. wants to get home and states therefore she wants to d/c AMBULATORY CARE COORDINATOR. Stop AMBULATORY CARE COORDINATOR and restart Methadone scheduled, however will increase to 15 mg 4x daily (from TID) and will likely need increase in near future. Restart Dilaudid PO 8 mg q4hrs PRN. Cont. PO lorazepam and d/c IV. Attempted to contact Dr. Ryan of [facility] (1- [phone] & ), however unavailable today therefore message left with associates. 3. Nausea: r/t malignancy, better controlled. Transition to PO Reglan ac TID and may help with motility. Disposition: I have recommended against d/c today d/t risk of withdrawal and prior early d/c leading to re-admit quickly. She is aware of this recommendation, though remains adamant that she wants to go home and I have reiterated my medical recommendation to remain inpt. until pain and constipation better managed for transition to home at least overnight.
[2017-02-04] MEDS ORDERED: Methadone TAB* 10 MG PO SCH (11:00)
[2017-02-04] MEDS ORDERED: PEG 3000 GI LAVAGE* 1 GALLON PO ONE (11:15)
[2017-02-04] MEDS ORDERED: Metoclopramide TAB* 10 MG PO SCH (11:30)
[2017-02-05] MEDS ORDERED: Omeprazole CAP* 20 MG PO SCH (06:00)
--- NOTE | 2017-02-05 11:52 | DS ---
DISCHARGE SUMMARY: DATE OF ADMISSION: 02/02/17 DATE OF DISCHARGE: 02/04/17 PRINCIPAL DIAGNOSES: 1. Intractable pain, history of stage IV ovarian cancer, seeking end-of-life care. 2. Severe constipation. 3. History of anxiety disorder. 4. Poor performance status. 5. History of hydronephrosis, stable, having bilateral ureteral stents. DISCHARGE MEDICATIONS: Include: 1. Hydromorphone 8 mg p.o. every 4 hours as needed for pain. 2. Lorazepam 1 mg every 4 hours as needed for sleep or anxiety. 3. Methadone 15 mg every 6 hours. 4. Reglan 10 mg every onset of a new meal. 5. Omeprazole 20 mg p.o. daily. 6. Fleet Enema up to 3 per day. HOSPITAL COURSE: The patient was admitted to the hospital being a 36-year-old female with advanced ovarian cancer and was admitted for intractable pain, nausea, constipation without obstruction. Her constipation has been severe likely secondary to peritoneal metastasis. She has significant loss o f appetite and p.o. uptake. Her performance status has been such that she would certainly not quali fy for any additional active therapy and a palliative care/hospice consultation was initiated with Dianna Ballesteros. Patient and family have decided to go home with hospice and to be opened next weemilia k. Her pain was managed during her hospital stay with a HANDLE BENDER. HANDLE BENDER was subsequently stopped and swit ched to oral pain medication including methadone and Dilaudid and she will follow up with for pain management, who is her current pain manager of tax. Her nausea was under better control secondar y to the Reglan and the patient will be opened to hospice next week should the patient decide to sig n on. Her Ativan was e-scribed and she can pick that up at any time or including a family member. Port was de-accessed. The patient's vital signs are stable upon her discharge. ANGELA OGDEN [id number]/[facility] #: [id number]
== END 2017-02-04 15:15 | disposition hospice, home (50) | DRG 948 ==
LOC: ED 08:07 → MED 12:36
PROVIDERS: ADMIT Internal Medicine Hematology & Oncology; ATTEND Internal Medicine Hematology & Oncology
DX: G89.3 Neoplasm related pain (acute) (chronic) (principal); C78.6 Secondary malignant neoplasm of retroperitoneum and peritoneum; C56.9 Malignant neoplasm of unspecified ovary; I95.9 Hypotension, unspecified; K59.00 Constipation, unspecified; Z66 Do not resuscitate; Z96.0 Presence of urogenital implants; Z51.5 Encounter for palliative care; F41.9 Anxiety disorder, unspecified; G89.29 Other chronic pain; M54.9 Dorsalgia, unspecified; R11.0 Nausea; F17.210 Nicotine dependence, cigarettes, uncomplicated; Z88.8 Allergy status to other drugs, medicaments and biological substances; Z91.040 Latex allergy status; Z86.73 Personal history of transient ischemic attack (TIA), and cerebral infarction without residual deficits; Z80.1 Family history of malignant neoplasm of trachea, bronchus and lung; Z91.041 Radiographic dye allergy status; Z91.048 Other nonmedicinal substance allergy status; Z88.0 Allergy status to penicillin; Z93.6 Other artificial openings of urinary tract status; Z88.1 Allergy status to other antibiotic agents; Z88.5 Allergy status to narcotic agent
CPT/HCPCS: 36415; 74000; 80053; 81003; 81015; 85025; 86140; 87086; 99222; 99239; 99283; A9270-GY; J0696; J1170; J1642; J2060; J2270; J2405

== ENCOUNTER 2017-02-06 18:16 | Inpatient (IN) | payer MEDICARE, MEDICAID ==
[2017-02-06] MEDS ORDERED: Ondansetron INJ* 2 MG/ML VIAL IV ONE (18:55)
[2017-02-06] MEDS ORDERED: NS 0.9% 1000 ML* 2,000 ML IV ONE (18:55)
[2017-02-06] MEDS: HYDROmorphone* 2 MG/ML 1 ML SYR IV SLOW PU ONE ×2 (19:09→20:17)
[2017-02-06 19:20] LABS: Hematocrit 38 % (35-47); Hemoglobin 12.9 g/dl (12.0-16.0); Mean Corpuscular HGB Conc 34 g/dl (31-36); Mean Corpuscular Hemoglobin 32 pg (27-31); Mean Corpuscular Volume 94 fL (80-97); Mean Platelet Volume 7 um3 (7.4-10.4); Red Blood Count 4.02 10^6/ul (4.0-5.4); Red Cell Distribution Width 16 % (10.5-15); White Blood Count 8.9 10^3/ul (3.5-10.8)
[2017-02-06] MEDS ORDERED: HYDROmorphone* 2 MG/ML 1 ML SYR IV SLOW PU ONE (19:20)
[2017-02-06] MEDS ORDERED: Methadone TAB* 10 MG PO ONE (19:21)
[2017-02-06 19:34] LABS: Albumin 3.6 g/dL (3.2-5.2); BUN/Creatinine Ratio 18.3 (8-20); Calcium 8.9 mg/dL (8.6-10.3); EGFR African American 145.5 (>60); EGFR Non-African American 113.1 (>60); Globulin 2.9 g/dL (2-4); Potassium 3.4 mmol/L (3.5-5.0); Total Bilirubin 0.5 mg/dL (0.2-1.0); Total Protein 6.5 g/dL (6.4-8.9)
[2017-02-06] MEDS ORDERED: LORazepam INJ* 2 MG/ML 1 ML VIAL IV ONE (19:55)
[2017-02-06] MEDS ORDERED: HYDROmorphone* 2 MG/ML 1 ML SYR ONE ×2 (20:09→20:41)
[2017-02-06] MEDS ORDERED: Senna TAB PO PRN (20:21)
[2017-02-06] MEDS ORDERED: Polyethylene Glycol 3350* 17 GM PACKET PO PRN (20:21)
[2017-02-06] MEDS ORDERED: PEG 3000 GI LAVAGE* 1 GALLON PO ONE (20:37)
[2017-02-06] MEDS ORDERED: Sodium Phosphate ADULT ENEMA* 118 ml bottle PR SCH (21:00)
[2017-02-06] MEDS ORDERED: HYDROmorphone* 2 MG/ML 1 ML SYR IV SLOW PU SCH (21:00)
[2017-02-06] MEDS: NS 0.9% 1000 ML* 1,000 ML IV SCH (22:38)
[2017-02-06] MEDS: HYDROmorphone PCA* 20 MG/20 ML PCA.SYRING PCA SCH (22:38)
[2017-02-06] MEDS: Sodium Phosphate ADULT ENEMA* 118 ml bottle PR SCH (22:55)
[2017-02-06] MEDS: LORazepam INJ* 2 MG/ML 1 ML VIAL IV PUSH PRN (23:57)
[2017-02-07 00:35] LABS: Urine Bacteria Absent (Absent); Urine Bilirubin Negative (Negative); Urine Glucose Negative (Negative); Urine Nitrite Negative (Negative)
[2017-02-07] MEDS: HYDROmorphone PCA* 20 MG/20 ML PCA.SYRING PCA SCH ×3 (05:28→19:09)
[2017-02-07] MEDS: Ondansetron INJ* 2 MG/ML VIAL IV PRN ×2 (05:42→17:10)
[2017-02-07] MEDS: LORazepam INJ* 2 MG/ML 1 ML VIAL IV PUSH PRN ×5 (05:42→23:25)
[2017-02-07] MEDS: METHYLNALTREXONE 150 MG PO SCH (07:19)
[2017-02-07] MEDS: Sodium Phosphate ADULT ENEMA* 118 ml bottle PR SCH ×3 (07:57→20:13)
--- NOTE | 2017-02-07 08:23 | ED ---
Frandy Lebron SooYoung, scribed for Bassam Mendoza MD on 02/06/17 at 1942 . Abdominal Pain/Female - HPI Summary HPI Summary: A 36 y/o F presents to ED with c/o worsening diffuse lower abd pain onset past few weeks, and she was unable to sleep last night. At bedside, she states she feels her "intestines are going to explode" and that she has not had a BM in "a long time." Associated sx: flatulence. Pert PMHx: ovarian CA. Pt sees Dr. Calle, oncology. Pt was recently admitted last week for abd pain, and released home four days ago. SHx: appy, cholecystectomy, oophectomy. - History of Current Complaint Chief Complaint: EDAbdPain Stated Complaint: ABD PAIN Time Seen by Provider: 02/06/17 19:34 Hx Obtained From: Patient, Family/Wet Mix Operator Hx Last Menstrual Period: age 25 yrs Onset/Duration: Lasting Weeks, Still Present Timing: Constant Severity Initially: Moderate Severity Currently: Severe Pain Intensity: 10 Pain Scale Used: 0-10 Numeric Location: Diffuse Associated Signs and Symptoms: Positive: Other: - POS: FLATULANCE Allergies/Adverse Reactions: Allergies Allergy/AdvReac Type Severity Reaction Status Date / Time Adhesive Tape Allergy Severe SKIN Verified 02/06/17 18:29 REACTION Carboplatin Allergy Severe Anaphylatic Verified 02/06/17 18:29 Shock Iohexol Allergy See Comment Verified 02/06/17 18:29 Latex Allergy Unknown Verified 02/06/17 18:29 Reaction Details Penicillins [PCN] Allergy Unknown Verified 02/06/17 18:29 Reaction Details Tapentadol [From Nucynta] Allergy Hallucinati Verified 02/06/17 18:29 ons Doxycycline AdvReac Intermediate Vomiting Verified 02/06/17 18:29 IV contrast Allergy Vomiting Uncoded 02/06/17 18:29 PMH/Surg Hx/FS Hx/Imm Hx Previously Healthy: No Respiratory History: Reports: Other Respiratory Problems/Disorders - PMHx Bronchitis Denies: Hx Chronic Obstructive Pulmonary Disease (COPD) GI History: Reports: Hx Gall Bladder Disease History: Reports: Other Problems/Disorders - HYDRONEPHROSIS, BILAT NEPHROSTOMIES, UTRERAL STENT Musculoskeletal History: Reports: Hx Back Problems Sensory History: Reports: Hx Contacts or Glasses Denies: Hx Hearing Aid Opthamlomology History: Reports: Hx Contacts or Glasses Neurological History: Reports: Hx Transient Ischemic Attacks (TIA) - PER PT. Denies: Hx Migraine, Hx Nerve Disease Psychiatric History: Reports: Hx Anxiety Denies: Hx Depression - Cancer History Cancer Type, Location and Year: Ovarian - METS - Surgical History Surgery Procedure, Year, and Place: PARTIAL HYSTERECTOMY. ABDOMINAL SURGERY 09/09. APPENDECTOMY. CHOLECYSTECTOMY. TONSILLECTOMY- JUN 2014. BILAT SALPINGECTOMY/OOPHERECTOMY. URETER STENT. bilat nephrostomies Infectious Disease History: No Infectious Disease History: Reports: Hx Clostridium Difficile, Hx Shingles - age 26 Denies: Hx Hepatitis, Hx Human Immunodeficiency Virus (HIV), Hx of Known/ Suspected MRSA, Hx Tuberculosis, Hx Known/Suspected VRE, Hx Known/Suspected VRSA , History Other Infectious Disease, Traveled Outside the [place] in Last 30 Days - Family History Known Family History: Negative: Cardiac Disease - Social History Occupation: Unemployed Lives: With Family Alcohol Use: None Hx Substance Use: Yes Substance Use Type: Reports: Marijuana Hx Tobacco Use: Yes Smoking Status (MU): Heavy Every Day Tobacco Smoker Type: Cigarettes Amount Used/How Often: 1/2 PPD Length of Time of Smoking/Using Tobacco: 21 Years Have You Smoked in the Last Year: Yes Review of Systems Positive: Fever Positive: Abdominal Pain, Other - pos: flatulence All Other Systems Reviewed And Are Negative: Yes Physical Exam Triage Information Reviewed: Yes Vital Signs On Initial Exam: Initial Vitals Temp Pulse Resp BP Pulse Ox 100.2 F 90 16 136/91 96 02/06/17 18:27 02/06/17 18:27 02/06/17 18:27 02/06/17 18:27 02/06/17 18:27 Vital Signs Reviewed: Yes Appearance: Positive: Well-Appearing, Pain Distress - moderate Skin: Positive: Warm, Skin Color Reflects Adequate Perfusion, Dry Head/Face: Positive: Normal Head/Face Inspection Eyes: Positive: EOMI, BHAVIK ENT: Positive: Normal ENT inspection Neck: Positive: Supple, Nontender Respiratory/Lung Sounds: Positive: Clear to Auscultation, Breath Sounds Present Cardiovascular: Positive: RRR Abdomen Description: Positive: Soft, Other: - DIFFUSE TENDERNESS; ECCHYMOSIS AT UMBILICUS Bowel Sounds: Positive: Hypoactive Musculoskeletal: Positive: Normal, Strength/ROM Intact Neurological: Positive: Normal, Sensory/Motor Intact, Alert, Oriented to Person Place, Time Psychiatric: Positive: Affect/Mood Appropriate Diagnostics - Vital Signs Vital Signs Temp Pulse Resp BP Pulse Ox 02/06/17 19:35 22 02/06/17 19:34 22 02/06/17 19:09 22 02/06/17 18:56 100.9 F 89 24 125/89 96 02/06/17 18:27 100.2 F 90 16 136/91 96 - Laboratory Lab Results: Lab Results 02/06/17 02/06/17 02/06/17 Range/Units 19:00 19:00 19:00 WBC 8.9 (3.5-10.8) 10^3/ul RBC 4.02 (4.0-5.4) 10^6/ul Hgb 12.9 (12.0-16.0) g/dl Hct 38 (35-47) % MCV 94 (80-97) fL MCH 32 H (27-31) pg MCHC 34 (31-36) g/dl RDW 16 H (10.5-15) % Plt Count 288 (150-450) 10^3/ul MPV 7 L (7.4-10.4) um3 Neut % (Auto) 83.7 H (38-83) % Lymph % (Auto) 9.7 L (25-47) % [place] % (Auto) 5.7 (1-9) % Eos % (Auto) 0.2 (0-6) % Baso % (Auto) 0.7 (0-2) % Absolute Neuts (auto) 7.5 (1.5-7.7) 10^3/ul Absolute Lymphs (auto) 0.9 L (1.0-4.8) 10^3/ul Absolute Monos (auto) 0.5 (0-0.8) 10^3/ul Absolute Eos (auto) 0 (0-0.6) 10^3/ul Absolute Basos (auto) 0.1 (0-0.2) 10^3/ul Absolute Nucleated RBC 0 10^3/ul Nucleated RBC % 0 Sodium 136 (133-145) mmol/L Potassium 3.4 L (3.5-5.0) mmol/L Chloride 101 (101-111) mmol/L Carbon Dioxide 27 (22-32) mmol/L Anion Gap 8 (2-11) mmol/L BUN 11 (6-24) mg/dL Creatinine 0.60 (0.51-0.95) mg/dL Est GFR ( Amer) 145.5 (>60) Est GFR (Non-Af Amer) 113.1 (>60) BUN/Creatinine Ratio 18.3 (8-20) Glucose 87 (70-100) mg/dL Lactic Acid 0.6 (0.5-2.0) mmol/L Calcium 8.9 (8.6-10.3) mg/dL Total Bilirubin 0.50 (0.2-1.0) mg/dL AST 12 L (13-39) U/L ALT 10 (7-52) U/L Alkaline Phosphatase 68 (34-104) U/L Total Protein 6.5 (6.4-8.9) g/dL Albumin 3.6 (3.2-5.2) g/dL Globulin 2.9 (2-4) g/dL Albumin/Globulin Ratio 1.2 (1-3) Result Diagrams: 02/06/17 19:00 02/06/17 19:00 Lab Statement: Any lab studies that have been ordered have been reviewed, and results considered in the medical decision making process. Abdominal Pain Fem Course/Dx - Course Course Of Treatment: Pt is a 36 y/o F presenting with c/o worsening diffuse lower abd pain onset past few weeks. Pert PMHx: ovarian CA. Pt sees Dr. Calle, oncology. Associated sx: flatulance, constipation. Pt was recently admitted last week for abd pain, and released home four days ago. SHx: appy, cholecystectomy, oophectomy. NO CRITICAL CARE TIME. ADMIT HOSPITALIST. Pt given fluids, Zofran, Methadone, Dilauded, Ativan in ED. Consulted with Dr. Joyce, hospitalist at 1950, will admit pt. - Diagnoses Provider Diagnoses: Intractable abdominal pain, Ovarian cancer - Provider Notifications Discussed Care Of Patient With: Javi Joyce - hospitalist Time Discussed With Above Provider: 19:50 Instructed by Provider To: Admit As Inpatient Discharge - Discharge Plan Condition: Stable Disposition: ADMITTED TO [facility] documentation as recorded by the scribe, VanDeMark,SooYoung accurately reflects the service I personally performed and the decisions made by me, Bassam Mendoza MD.
[2017-02-07] MEDS: NS 0.9% 1000 ML* 1,000 ML IV SCH ×2 (08:31→18:34)
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
--- NOTE | 2017-02-07 11:25 | PN ---
Subjective Date of Service: 02/07/17 Interval History: Pt continue to have severe abdominal pain. She states that the dilaudid EXHIBITOR SALES at the current dose is taking the edge off but is not making much of a difference. She states she has not had a really good BM in months and feels uncomfortable related to this. Objective Active Medications: Docusate Sodium (Colace Cap*) 100 mg PO BID PRN PRN Reason: CONSTIPATION Sodium Chloride (Ns 0.9% 1000 Ml*) 1,000 mls @ 100 mls/hr IV PER RATE [facility] Last Admin: 02/07/17 08:31 Dose: 100 mls/hr Hydromorphone HCl (Dilaudid Tipple Engineer*) 20 mg in 20 mls @ 0 mls/hr EXHIBITOR SALES .change Q24H JACQUELINE; Per Protocol PRN Reason: Protocol Lorazepam (Ativan Inj*) 1 mg IV PUSH Q4H PRN PRN Reason: ANXIETY Methylnaltrexone [place] (Relistor) 150 mg PO DAILY [facility] Last Admin: 02/07/17 07:19 Dose: Not Given Nicotine (Nicotine Inhaler*) 10 mg INH Q2H PRN PRN Reason: CRAVING Nicotine (Nicotine Patch 21 Mg/24 Hr*) 1 patch TRANSDERM Q24H [facility] Ondansetron HCl (Zofran Inj*) 4 mg IV Q4H PRN PRN Reason: NAUSEA Last Admin: 02/07/17 05:42 Dose: 4 mg Pharmacy Profile Note (Nicotine Patch Removal Note*) 1 note FOLLOW UP 0900 [facility] Polyethylene Glycol/Electrolytes (Miralax*) 17 gm PO DAILY PRN PRN Reason: CONSTIPATION Senna (Senokot Tab*) 2 tab PO BEDTIME PRN PRN Reason: CONSTIPATION Sodium Biphosphate/Sodium Phosphate (Fleet Enema*) 1 bottle [place] TID [facility] Last Admin: 02/07/17 07:57 Dose: Not Given Vital Signs 02/06/17 02/06/17 02/06/17 20:44 20:50 21:31 Temperature Pulse Rate 80 Respiratory 18 20 18 Rate Blood Pressure 116/73 (mmHg) O2 Sat by Pulse 95 93 Oximetry 02/06/17 02/06/17 02/06/17 22:15 22:21 22:38 Temperature 98.1 F 98.1 F Pulse Rate 76 76 Respiratory 19 19 18 Rate Blood Pressure 122/77 122/77 (mmHg) O2 Sat by Pulse 98 98 Oximetry 02/06/17 02/06/17 02/06/17 22:50 23:38 23:57 Temperature Pulse Rate 75 Respiratory 18 17 18 Rate Blood Pressure 122/77 (mmHg) O2 Sat by Pulse 93 Oximetry 02/07/17 02/07/17 02/07/17 00:57 03:38 03:54 Temperature 97.9 F Pulse Rate 90 Respiratory 18 16 15 Rate Blood Pressure 104/73 (mmHg) O2 Sat by Pulse 97 Oximetry 02/07/17 02/07/17 02/07/17 05:28 05:34 05:42 Temperature Pulse Rate 73 Respiratory 17 18 17 Rate Blood Pressure (mmHg) O2 Sat by Pulse 94 Oximetry 02/07/17 02/07/17 02/07/17 06:28 06:30 06:42 Temperature Pulse Rate 70 Respiratory 16 16 16 Rate Blood Pressure (mmHg) O2 Sat by Pulse 96 Oximetry 02/07/17 02/07/17 07:49 08:00 Temperature 97.8 F Pulse Rate 81 Respiratory 18 14 Rate Blood Pressure 119/82 (mmHg) O2 Sat by Pulse 97 Oximetry Oxygen Devices in Use Now: None Appearance: Young cachectic female sitting up in bed, NAD Eyes: No Scleral Icterus Ears/Nose/Mouth/Throat: Mucous Membranes Moist Respiratory: Symmetrical Chest Expansion and Respiratory Effort, Clear to Auscultation Cardiovascular: NL Sounds; No Murmurs; No JVD, RRR, No Edema Abdominal: - - hypoactive BS, abdomen is firm and tender. Numerous tumors felt in the patients abdomen Extremities: No Clubbing, Cyanosis Skin: No Rash or Ulcers, No Nodules or Sclerosis Neurological: Alert and Oriented x 3 Result Diagrams: 02/06/17 19:00 02/06/17 19:00 Additional Lab and Data: Lab Results 02/06/17 02/06/17 02/06/17 Range/Units 19:00 19:00 19:00 WBC 8.9 (3.5-10.8) 10^3/ul RBC 4.02 (4.0-5.4) 10^6/ul Hgb 12.9 (12.0-16.0) g/dl Hct 38 (35-47) % MCV 94 (80-97) fL MCH 32 H (27-31) pg MCHC 34 (31-36) g/dl RDW 16 H (10.5-15) % Plt Count 288 (150-450) 10^3/ul MPV 7 L (7.4-10.4) um3 Neut % (Auto) 83.7 H (38-83) % Lymph % (Auto) 9.7 L (25-47) % [place]upe % (Auto) 5.7 (1-9) % Eos % (Auto) 0.2 (0-6) % Baso % (Auto) 0.7 (0-2) % Absolute Neuts (auto) 7.5 (1.5-7.7) 10^3/ul Absolute Lymphs (auto) 0.9 L (1.0-4.8) 10^3/ul Absolute Monos (auto) 0.5 (0-0.8) 10^3/ul Absolute Eos (auto) 0 (0-0.6) 10^3/ul Absolute Basos (auto) 0.1 (0-0.2) 10^3/ul Absolute Nucleated RBC 0 10^3/ul Nucleated RBC % 0 Sodium 136 (133-145) mmol/L Potassium 3.4 L (3.5-5.0) mmol/L Chloride 101 (101-111) mmol/L Carbon Dioxide 27 (22-32) mmol/L Anion Gap 8 (2-11) mmol/L BUN 11 (6-24) mg/dL Creatinine 0.60 (0.51-0.95) mg/dL Est GFR ( Amer) 145.5 (>60) Est GFR (Non-Af Amer) 113.1 (>60) BUN/Creatinine Ratio 18.3 (8-20) Glucose 87 (70-100) mg/dL Lactic Acid 0.6 (0.5-2.0) mmol/L Calcium 8.9 (8.6-10.3) mg/dL Total Bilirubin 0.50 (0.2-1.0) mg/dL AST 12 L (13-39) U/L ALT 10 (7-52) U/L Alkaline Phosphatase 68 (34-104) U/L Total Protein 6.5 (6.4-8.9) g/dL Albumin 3.6 (3.2-5.2) g/dL Globulin 2.9 (2-4) g/dL Albumin/Globulin Ratio 1.2 (1-3) Assess/Plan/Problems-Billing Ms Demetria is a 36 yo F who has advanced ovarian cancer who was readmitted to the hospital 2 days after prior d/c for pain/nausea control with the same symptoms as she was not able to manage at home. - Patient Problems (1) Carcinoma of ovary, stage 4 Current Visit: Yes Status: Acute Code(s): C56.9 - MALIGNANT NEOPLASM OF UNSPECIFIED OVARY SNOMED Code(s): 432931579 Comment: With advanced carcinamatosis. Continue dilaudid EXHIBITOR SALES but increase continuous rate to 1.2mg/hr. Will continue to make adjustments as needed. (2) Hydronephrosis Current Visit: Yes Status: Acute Code(s): N13.30 - UNSPECIFIED HYDRONEPHROSIS SNOMED Code(s): 34463364 Comment: Nephrostomy tubes in place but not being utilized at this time. (3) Constipation Current Visit: Yes Status: Acute Code(s): K59.00 - CONSTIPATION, UNSPECIFIED SNOMED Code(s): 54776866 Comment: Try coca cola enema- she is desperate to have a BM. She states she can not really stand to take in much by mouth. Check lytes tomorrow. (4) Anxiety disorder Current Visit: Yes Status: Acute Code(s): F41.9 - ANXIETY DISORDER, UNSPECIFIED SNOMED Code(s): 211091395 Comment: Continue prn ativan-change to q4hr prn. (5) DVT prophylaxis Current Visit: Yes Status: Acute Code(s): BCV1455 - SNOMED Code(s): 339263308 Comment: ambulation (6) DNR (do not resuscitate) Current Visit: Yes Status: Acute
[2017-02-07] MEDS: Nicotine Inhaler* 10 MG AMP INH PRN ×2 (12:11→20:18)
[2017-02-07] MEDS: Mouth Piece, Nicotine* 1 EACH CARTRIDGE ONE ×2 (12:22→20:18)
[2017-02-07] MEDS ORDERED: Mouth Piece, Nicotine* 1 EACH CARTRIDGE INH ONE (14:00)
[2017-02-07] MEDS: Docusate CAP* 100 MG PO PRN (20:18)
[2017-02-07] MEDS: Nicotine PATCH 21 MG/24 HR* PATCH TRANSDERM SCH (23:33)
[2017-02-08] MEDS: Ondansetron INJ* 2 MG/ML VIAL IV PRN ×4 (01:24→18:56)
[2017-02-08] MEDS: HYDROmorphone PCA* 20 MG/20 ML PCA.SYRING PCA SCH ×3 (01:39→14:06)
[2017-02-08] MEDS: LORazepam INJ* 2 MG/ML 1 ML VIAL IV PUSH PRN ×5 (03:07→22:11)
[2017-02-08] MEDS ORDERED: Metoclopramide IV* 5 MG/ML 2 ML VIAL ONE (04:37)
[2017-02-08] MEDS: Metoclopramide IV* 5 MG/ML 2 ML VIAL IV PRN ×2 (04:40→22:11)
[2017-02-08] MEDS: NS 0.9% 1000 ML* 1,000 ML IV SCH ×3 (05:22→18:57)
[2017-02-08 05:54] LABS: BUN/Creatinine Ratio 13.6 (8-20); EGFR African American 148.3 (>60); EGFR Non-African American 115.3 (>60); Magnesium 1.2 mg/dL (1.9-2.7)
[2017-02-08 06:27] LABS: Potassium 4.1 mmol/L (3.5-5.0)
[2017-02-08] MEDS: Nicotine Patch Removal NOTE FOLLOW UP SCH (08:22)
[2017-02-08] MEDS: METHYLNALTREXONE 150 MG PO SCH (08:22)
[2017-02-08] MEDS ORDERED: Magnesium Sulf 4 GM/100 ML IV* 4,000 MG/100 ML BAG IVPB ONE (10:46)
[2017-02-08] MEDS ORDERED: Methadone TAB* 10 MG PO SCH (11:00)
[2017-02-08] MEDS: Magnesium Hydroxide LIQ* 30 ML UDC PO SCH ×3 (11:06→23:33)
[2017-02-08] MEDS: Sodium Phosphate ADULT ENEMA* 118 ml bottle PR SCH ×3 (11:09→21:00)
[2017-02-08] MEDS: Docusate CAP* 100 MG PO PRN ×2 (12:43→20:58)
[2017-02-08] MEDS: Nicotine Inhaler* 10 MG AMP INH PRN (12:43)
[2017-02-08 12:59] LABS: Albumin 3.5 g/dL (3.2-5.2); EGFR African American 154.3 (>60); Globulin 2.8 g/dL (2-4); Total Bilirubin 0.4 mg/dL (0.2-1.0); Total Protein 6.3 g/dL (6.4-8.9)
[2017-02-08] MEDS: Methadone TAB* 10 MG PO SCH ×2 (14:07→20:57)
[2017-02-08] MEDS ORDERED: HYDROmorphone PCA* 20 MG/20 ML PCA.SYRING PCA SCH (14:20)
[2017-02-08] MEDS: HYDROmorphone PCA *HIGH DOSE* 100 MG/20 ML PCA.SYRING PCA SCH (17:28)
[2017-02-08] MEDS: Nicotine PATCH 21 MG/24 HR* PATCH TRANSDERM SCH (21:00)
[2017-02-08] MEDS ORDERED: HYDROmorphone* 2 MG/ML 1 ML SYR IV ONE (23:40)
[2017-02-08] MEDS ORDERED: LORazepam INJ* 2 MG/ML 1 ML VIAL IV PUSH ONE (23:40)
[2017-02-09] MEDS: Ondansetron INJ* 2 MG/ML VIAL IV PRN ×6 (00:22→22:54)
[2017-02-09] MEDS: LORazepam INJ* 2 MG/ML 1 ML VIAL IV PUSH PRN ×5 (04:24→21:44)
[2017-02-09] MEDS: Magnesium Hydroxide LIQ* 30 ML UDC PO SCH ×4 (04:28→21:52)
[2017-02-09] MEDS: NS 0.9% 1000 ML* 1,000 ML IV SCH ×2 (05:43→16:16)
[2017-02-09] MEDS: Metoclopramide IV* 5 MG/ML 2 ML VIAL IV PRN ×2 (06:03→20:30)
[2017-02-09] MEDS: Nicotine Patch Removal NOTE FOLLOW UP SCH (09:16)
[2017-02-09] MEDS: METHYLNALTREXONE 150 MG PO SCH (09:16)
[2017-02-09] MEDS: Sodium Phosphate ADULT ENEMA* 118 ml bottle PR SCH ×3 (09:16→21:06)
[2017-02-09] MEDS: HYDROmorphone PCA *HIGH DOSE* 100 MG/20 ML PCA.SYRING PCA SCH (11:47)
[2017-02-09] MEDS: LORazepam TAB(*) 1 MG SL PRN ×4 (11:50→22:57)
[2017-02-09] MEDS: Methadone TAB* 10 MG PO SCH ×3 (12:12→21:06)
[2017-02-09] MEDS ORDERED: Pantoprazole IV* 40 MG IV SCH (21:00)
[2017-02-09] MEDS: Nicotine PATCH 21 MG/24 HR* PATCH TRANSDERM SCH (21:06)
[2017-02-09] MEDS: Docusate CAP* 100 MG PO PRN (21:23)
[2017-02-10] MEDS: LORazepam INJ* 2 MG/ML 1 ML VIAL IV PUSH PRN ×6 (00:49→23:29)
[2017-02-10] MEDS: LORazepam TAB(*) 1 MG SL PRN (02:28)
[2017-02-10] MEDS: Ondansetron INJ* 2 MG/ML VIAL IV PRN ×3 (02:38→23:46)
[2017-02-10] MEDS: Magnesium Hydroxide LIQ* 30 ML UDC PO SCH ×4 (03:56→23:28)
[2017-02-10] MEDS: Metoclopramide IV* 5 MG/ML 2 ML VIAL IV PRN ×3 (04:17→21:35)
[2017-02-10] MEDS: NS 0.9% 1000 ML* 1,000 ML IV SCH ×2 (04:18→14:00)
[2017-02-10] MEDS: HYDROmorphone PCA *HIGH DOSE* 100 MG/20 ML PCA.SYRING PCA SCH ×2 (06:09→21:29)
[2017-02-10] MEDS ORDERED: Calcium Carbonate CHEW TAB* 500 MG (TUMS) PO PRN (08:23)
[2017-02-10 08:52] VITALS: BP 128/76
[2017-02-10] MEDS: Methadone TAB* 10 MG PO SCH ×3 (09:47→21:40)
[2017-02-10] MEDS: METHYLNALTREXONE 150 MG PO SCH (09:47)
[2017-02-10] MEDS: Nicotine Patch Removal NOTE FOLLOW UP SCH (09:47)
[2017-02-10] MEDS: Sodium Phosphate ADULT ENEMA* 118 ml bottle PR SCH ×3 (09:48→21:41)
[2017-02-10] MEDS ORDERED: Trimethobenzamide CAP* 300 MG PO PRN (10:20)
[2017-02-10] MEDS ORDERED: Ondansetron ODT TAB* 4 MG SL PRN (12:39)
[2017-02-10] MEDS ORDERED: Ondansetron ODT TAB* 4 MG ONE (12:44)
[2017-02-10] MEDS: Docusate CAP* 100 MG PO PRN ×2 (13:04→21:40)
--- NOTE | 2017-02-10 14:22 | CONSULT ---
Palliative / Hospice Consult Ordering Provider: Hollis Glass - Subjective Code Status: DNR Advance Directives Location: In Chart [facility] Part A Completed: Yes - DNR [facility] Part E Completed:: Yes - DNI only HCP Completed: Yes - Today, 1) mother 2) Florinda Eliasherbie - History or Present Illness History or Present Illness: This 36 year old has a history of aggressive recurrent ovarian cancer and has no options for disease modifying or life-prolonging treatment left. She has a male partner who is episodically available, and she has a 4 year old daughter. She has no HCP form but states she would likeher mother (who has lung cancer) mohsen her HCP with an alternate agent of Florinda Eliaslutherbrian, her friend. the patient has left the hospital on two occasions AMA, but returns with intractable pain. In speaking with her, she understands she has terminal cancer and not long to live. She is accepting of hospice services in [facility] where she lives. However, she currently is having constant 8/10 pain and is not controlled , in part because she has apparently been refusing her Methadone doses, also possibly because she is being given methylnaloxone for bowel motility issues, and this is a mu opioid receptor antagonist which may block opioid action peripherally (although it does not cross the blood brain barrier) . She is on a Dilaudid HEAD OF IT right now, at 4 mg/hr with a bolus allowance of 0.5 mg q 5 min, max. 48 mg in 4 hours. She has used 41 mg in 6 hours most recently.She is experiencing nausea treated with both Ondansetron IV 4 mg Q 4 h , and Tigan 300 mg po Q 12 h. She has liberal IV and po lorazepam allowance. She tells me she is most interested in comfort at this point, and she soto snot want to pursue life-prolonging measures such as IV fluids and nutritional supplements. The patient says she plans to return to [place] after discharge and live with her friend Verna who runs a daycare in her home so the patient's daughter can be cared for there as well. Her friend Florinda Barba is also willing to help the patient wherever she ends up living. The patient flatly refuses "going to ta home" such as the [facility] residence. In addition to the patient's patient's uncontrolled pain, nausea and emesis, and fatigue, she has significant anorexia. Her albumin is surprisingly good at 3.5, but total protein is low at 6.3 and magnesium is also low at 1.2. Lab Values: Laboratory Last Values WBC 8.9 10^3/ul (3.5-10.8) 02/06/17 19:00 RBC 4.02 10^6/ul (4.0-5.4) 02/06/17 19:00 Hgb 12.9 g/dl (12.0-16.0) 02/06/17 19:00 Hct 38 % (35-47) 02/06/17 19:00 MCV 94 fL (80-97) 02/06/17 19:00 MCH 32 pg (27-31) H 02/06/17 19:00 MCHC 34 g/dl (31-36) 02/06/17 19:00 RDW 16 % (10.5-15) H 02/06/17 19:00 Plt Count 288 10^3/ul (150-450) 02/06/17 19:00 MPV 7 um3 (7.4-10.4) L 02/06/17 19:00 Neut % (Auto) 83.7 % (38-83) H 02/06/17 19:00 Lymph % (Auto) 9.7 % (25-47) L 02/06/17 19:00 Lamar % (Auto) 5.7 % (1-9) 02/06/17 19:00 Eos % (Auto) 0.2 % (0-6) 02/06/17 19:00 Baso % (Auto) 0.7 % (0-2) 02/06/17 19:00 Absolute Neuts (auto) 7.5 10^3/ul (1.5-7.7) 02/06/17 19:00 Absolute Lymphs (auto) 0.9 10^3/ul (1.0-4.8) L 02/06/17 19:00 Absolute Monos (auto) 0.5 10^3/ul (0-0.8) 02/06/17 19:00 Absolute Eos (auto) 0 10^3/ul (0-0.6) 02/06/17 19:00 Absolute Basos (auto) 0.1 10^3/ul (0-0.2) 02/06/17 19:00 Absolute Nucleated RBC 0 10^3/ul 02/06/17 19:00 Nucleated RBC % 0 02/06/17 19:00 Sodium 135 mmol/L (133-145) 02/08/17 12:25 Potassium 4.0 mmol/L (3.5-5.0) 02/08/17 12:25 Chloride 103 mmol/L (101-111) 02/08/17 12:25 Carbon Dioxide 27 mmol/L (22-32) 02/08/17 12:25 Anion Gap 5 mmol/L (2-11) 02/08/17 12:25 BUN 8 mg/dL (6-24) 02/08/17 12:25 Creatinine 0.57 mg/dL (0.51-0.95) 02/08/17 12:25 Est GFR ( Amer) 154.3 (>60) 02/08/17 12:25 Est GFR (Non-Af Amer) 120.0 (>60) 02/08/17 12:25 BUN/Creatinine Ratio 14.0 (8-20) 02/08/17 12:25 Glucose 96 mg/dL (70-100) 02/08/17 12:25 Lactic Acid 0.6 mmol/L (0.5-2.0) 02/06/17 19:00 Calcium 9.0 mg/dL (8.6-10.3) 02/08/17 12:25 Magnesium 1.2 mg/dL (1.9-2.7) L 02/08/17 05:00 Total Bilirubin 0.40 mg/dL (0.2-1.0) 02/08/17 12:25 AST 15 U/L (13-39) 02/08/17 12:25 ALT 10 U/L (7-52) 02/08/17 12:25 Alkaline Phosphatase 57 U/L (34-104) 02/08/17 12:25 Total Protein 6.3 g/dL (6.4-8.9) L 02/08/17 12:25 Albumin 3.5 g/dL (3.2-5.2) 02/08/17 12:25 Globulin 2.8 g/dL (2-4) 02/08/17 12:25 Albumin/Globulin Ratio 1.3 (1-3) 02/08/17 12:25 Urine Color Yellow 02/07/17 00:10 Urine Appearance Clear 02/07/17 00:10 Urine pH 6.0 (5-9) 02/07/17 00:10 Ur Specific [place] 1.016 (1.010-1.030) 02/07/17 00:10 Urine Protein 1+(30 mg/dl) (Negative) H 02/07/17 00:10 Urine Ketones 1+ (Negative) H 02/07/17 00:10 Urine Blood 1+ (Negative) H 02/07/17 00:10 Urine Nitrate Negative (Negative) 02/07/17 00:10 Urine Bilirubin Negative (Negative) 02/07/17 00:10 Urine Urobilinogen Negative (Negative) 02/07/17 00:10 Ur Leukocyte Esterase Trace (Negative) H 02/07/17 00:10 Urine WBC (Auto) 2+(11-20/hpf) (Absent) H 02/07/17 00:10 Urine RBC (Auto) 3+(>10/hpf) (Absent) H 02/07/17 00:10 Ur Squamous Epith Cells Present (Absent) H 02/07/17 00:10 Urine Bacteria Absent (Absent) 02/07/17 00:10 Urine Glucose Negative (Negative) 02/07/17 00:10 - Objective Active Medications: Calcium Carbonate (Tums*) 1,000 mg PO Q2H PRN PRN Reason: DISCOMFORT Last Admin: 02/10/17 08:34 Dose: 1,000 mg Docusate Sodium (Colace Cap*) 100 mg PO BID PRN PRN Reason: CONSTIPATION Last Admin: 02/10/17 13:04 Dose: 100 mg Heparin Sodium (Porcine) (Heparin Flush Picc/Ml/Cvc(*)) 0 ml IV FLUSH 0600, 1800 JACQUELINE PRN Reason: Protocol Sodium Chloride (Ns 0.9% 1000 Ml*) 1,000 mls @ 100 mls/hr IV PER RATE JACQUELINE Last Admin: 02/10/17 14:00 Dose: 100 mls/hr Hydromorphone HCl (Dilaudid Dental Laboratory Technician *High Dose*) 100 mg in 20 mls @ 0 mls/hr HEAD OF IT .change Q24H JACQUELINE; Per Protocol PRN Reason: Protocol Last Admin: 02/10/17 06:09 Dose: 4 mls/hr Lorazepam (Ativan Inj*) 1 mg IV PUSH Q2H PRN PRN Reason: ANXIETY Last Admin: 02/10/17 08:49 Dose: 1 mg Lorazepam (Ativan Tab(*)) 1 mg SL Q2H PRN PRN Reason: ANXIETY Last Admin: 02/10/17 02:28 Dose: 1 mg Magnesium Hydroxide (Milk Of Magnesia Liq*) 30 ml PO Q6H [facility] Last Admin: 02/10/17 10:43 Dose: Not Given Methadone HCl (Dolophine Tab*) 15 mg PO TID [facility] Last Admin: 02/10/17 13:03 Dose: 15 mg Methylnaltrexone Gowen (Relistor) 150 mg PO DAILY [facility] Last Admin: 02/10/17 09:47 Dose: Not Given Metoclopramide HCl (Reglan Iv*) 10 mg IV Q6H PRN PRN Reason: NAUSEA Last Admin: 02/10/17 13:58 Dose: 10 mg Nicotine (Nicotine Inhaler*) 10 mg INH Q2H PRN PRN Reason: CRAVING Last Admin: 02/08/17 12:43 Dose: 10 mg Nicotine (Nicotine Patch 21 Mg/24 Hr*) 1 patch TRANSDERM Q24H [facility] Last Admin: 02/09/17 21:06 Dose: Not Given Ondansetron HCl (Zofran Inj*) 4 mg IV Q4H PRN PRN Reason: NAUSEA Last Admin: 02/10/17 08:00 Dose: 4 mg Ondansetron HCl (Zofran Odt Tab*) 4 mg SL Q6H PRN PRN Reason: NAUSEA/VOMITING Last Admin: 02/10/17 12:47 Dose: 4 mg Pantoprazole Sodium (Protonix Iv*) 40 mg IV Q24H [facility] Last Admin: 02/09/17 21:15 Dose: 40 mg Pharmacy Profile Note (Nicotine Patch Removal Note*) 1 note FOLLOW UP 0900 [facility] Last Admin: 02/10/17 09:47 Dose: Not Given Polyethylene Glycol/Electrolytes (Miralax*) 17 gm PO DAILY PRN PRN Reason: CONSTIPATION Senna (Senokot Tab*) 2 tab PO BEDTIME PRN PRN Reason: CONSTIPATION Last Admin: 02/10/17 13:04 Dose: 2 tab Sodium Biphosphate/Sodium Phosphate (Fleet Enema*) [address]ID [facility] Last Admin: 02/10/17 13:04 Dose: Not Given Trimethobenzamide HCl (Tigan Cap*) 300 mg PO Q12H PRN PRN Reason: NAUSEA Vital Signs: Vital Signs: Temp Pulse Resp BP Pulse Ox 98.3 F 86 16 128/76 97 02/09/17 19:48 02/10/17 08:14 02/10/17 13:03 02/10/17 08:14 02/10/17 08:14 Patient Weight: Weight 110 lb Intake and Output: Intake & Output 02/08/17 02/09/17 02/10/17 02/11/17 06:59 06:59 06:59 06:59 Intake Total 3235 3015 2255 0 Output Total 1550 650 200 Balance 1685 3015 1605 -200 Intake: IV Fluids 2273 2585 2255 NS (0.9%) 2273 2585 2255 IVPB 52 110 Mg 4 gm 110 NS (0.9%) 52 Oral 910 320 0 0 Output: Urine 1550 650 200 Other: Estimated Void Medium # Bowel Movements 0 0 # Voids 3 ADLs: Meal Record Start: 02/06/17 21: 08 Freq: DAILY@0900,1400,1800 Status: Active Document 02/07/17 09:00 [id number] (Rec: 02/07/17 09:09 [id number] MED-C02) Document 02/07/17 13:37 [id number] (Rec: 02/07/17 13:38 [id number] MED-C02) Document 02/07/17 18:00 [id number] (Rec: 02/07/17 18:33 [id number] MED-C09) Document 02/08/17 14:00 [id number] (Rec: 02/08/17 14:16 [id number] MED-C11) Document 02/09/17 09:00 [id number] (Rec: 02/09/17 09:06 [id number] MED-C11) Document 02/09/17 14:00 [id number] (Rec: 02/09/17 14:19 [id number] MED-C11) Document 02/09/17 18:00 [id number] (Rec: 02/09/17 18:40 [id number] MED-C11) Document 02/10/17 09:00 [id number] (Rec: 02/10/17 14:08 [id number] MED-C11) Document 02/10/17 14:00 [id number] (Rec: 02/10/17 14:08 [id number] MED-C11) Intake and Output Start: 02/06/17 21: 08 Freq: DAILY@0600,1400,2200 Status: Active Document 02/06/17 22:00 [id number] (Rec: 02/06/17 22:52 [id number] MED-C11) Document 02/07/17 06:00 [id number] (Rec: 02/07/17 06:33 [id number] MEDL-C02) Document 02/07/17 12:42 [id number] (Rec: 02/07/17 12:42 [id number] MED-C02) Document 02/07/17 22:00 [id number] (Rec: 02/07/17 23:12 [id number] MED-C04) Document 02/08/17 05:21 [id number] (Rec: 02/08/17 05:21 [id number] MED-L05) Document 02/08/17 14:00 [id number] (Rec: 02/08/17 14:16 [id number] MED-C11) Document 02/08/17 22:00 [id number] (Rec: 02/08/17 22:59 [id number] MED-C13) Document 02/09/17 06:00 [id number] (Rec: 02/09/17 06:16 [id number] MEDL-C01) Document 02/09/17 14:00 [id number] (Rec: 02/09/17 14:19 [id number] MED-C11) Document 02/09/17 22:00 [id number] (Rec: 02/09/17 22:03 [id number] MED-C11) Document 02/10/17 06:00 [id number] (Rec: 02/10/17 06:21 [id number] MEDL-C02) Document 02/10/17 14:00 [id number] (Rec: 02/10/17 14:08 [id number] MED-C11) General Impression: Emaciated woman crying in pain in bed. Head: Symmetrical Eyes: No Scleral Icterus Ears/Nose/Mouth/Throat: NL Teeth, Lips, Gums, Mucous Membranes Moist Neck: NL Appearance and Movements; NL JVP Cardiovascular: NL Sounds; No Murmurs; No JVD, RRR, No Edema Respiratory: Clear to Auscultation Abdominal: - - hypoactive BS, abdomen is firm and tender. Numerous tumors felt in the patients abdomen Extremities: No Clubbing, Cyanosis Neurological: Alert and Oriented x 3 - Assessment Assessment: This patient has end-stage terminal illness and has uncontrolled symptoms that are severely impacting her ability to live comfortably for the time she has left. I have stressed to the nurses that her nausea is more likely due to her intense pain than to swallowing pills, and encourage them to give her her 15 mg methadone as scheduled, it is not a prn drug and the patient is not aware that she has been perceived as refusing it. In addition, I will stop her methylnaloxone as this may be hindering her response to her opioid dosing, and we will add MOM and po Magnesium to both replace her stores and help with bowel motility, as she feels she is constipated (although I believe she mostly has a sensation of fullness from the abdominal tumors). I will increase her Dilaudid to 5 mg/hr and liberalize her lorazepam as well. We will admit her to [facility] hospice with a primary diagnosis of metastatic ovarian cancer and a secondary of malnutrition. Hopefully as her methadone level is replenished she will need less IV Dilaudid and we will be able to move to po Dilaudid, possibly lollipops , prior to discharge. We will also discontinue her IV fluids and minimize hydration as much as possible to avoid prolonging her . The patient filled out and signed a HCP form with me naming her mother Shahida Barry and alternate Florinda Barba. The patient is in agreement with all these measures, which I reviewed with her. - Plan Consult Plan (MU): Hospice - Time On Unit Date of Evaluation: 02/10/17 Hospice Consult Time in: 13:30 Hospice Consult Time Out: 15:00 Hospice Consult Time Total: 90 > 50% of Time Spend In Counseling or Coordinating Care: Yes
[2017-02-10] MEDS ORDERED: LORazepam INJ* 2 MG/ML 1 ML VIAL IV PUSH PRN (17:13)
[2017-02-10] MEDS ORDERED: Pantoprazole IV* 40 MG IV SCH (21:00)
[2017-02-10] MEDS: Nicotine PATCH 21 MG/24 HR* PATCH TRANSDERM SCH (21:41)
[2017-02-11] MEDS: LORazepam INJ* 2 MG/ML 1 ML VIAL IV PUSH PRN ×3 (01:46→07:24)
[2017-02-11] MEDS: Magnesium Hydroxide LIQ* 30 ML UDC PO SCH (04:53)
[2017-02-11] MEDS: Metoclopramide IV* 5 MG/ML 2 ML VIAL IV PRN (05:09)
[2017-02-11] MEDS: Ondansetron INJ* 2 MG/ML VIAL IV PRN (05:32)
[2017-02-11] MEDS ORDERED: HYDROmorphone* 1 MG/ML 1 ML SYR ONE (09:23)
[2017-02-11] MEDS ORDERED: LORazepam INJ* 2 MG/ML 1 ML VIAL ONE (09:24)
[2017-02-11] MEDS ORDERED: HYDROmorphone* 1 MG/ML 1 ML SYR IV PRN (09:37)
[2017-02-11] MEDS ORDERED: LORazepam INJ* 2 MG/ML 1 ML VIAL IV PUSH PRN (09:37)
[2017-02-11] MEDS: HYDROmorphone PCA *HIGH DOSE* 100 MG/20 ML PCA.SYRING PCA SCH (09:50)
[2017-02-11] MEDS: Sodium Phosphate ADULT ENEMA* 118 ml bottle PR SCH (13:06)
[2017-02-11] MEDS: Methadone TAB* 10 MG PO SCH (13:06)
[2017-02-11] MEDS: Nicotine Patch Removal NOTE FOLLOW UP SCH (13:06)
--- NOTE | 2017-02-11 13:36 | DS ---
DISCHARGE SUMMARY: DATE OF ADMISSION: 02/06/17 DATE OF DISCHARGE: 02/11/17 to inpatient hospice. DISCHARGE MEDICATIONS: Will include: 1. Tums 1000 mg every 2 hours as needed for comfort. 2. Colace 100 mg twice daily. 3. Dilaudid PURCHASING SUPERVISOR currently at 6 mg per hour and 0.5 mg every 5 minutes as needed. 4. Lorazepam 1 to 2 mg either IV or sublingual every 2 hours as needed. 5. Methadone 15 mg p.o. at 0900, 1400, and 2100. 6. IV Reglan 10 mg IV every 6 hours as needed. We will discontinue the nicotine patch and inhalers. 7. Zofran 4 mg IV every 4 hours as needed for nausea. 8. Protonix 40 mg IV at 2100. 9. MiraLAX 17 g p.o. daily as needed for constipation. 10. Tigan 300 mg p.o. or p.r. every 12 hours as needed for nausea. HOSPITAL COURSE: Briefly, this is the patient's third admission for intractable pain secondary to her metastatic ovarian cancer and she is under terminal care. She has had recalcitrant nausea and vomiting, typically vomits fair amount of bile and has had uncontrolled nausea even secondary to Ativan, Zofran, Reglan, and Tigan. She has had a consultation by Dr. Randi Wilson yesterday who had recommended inpatient hospice care and the patient has agreed. The patient very well may need conscious sedation at some point in time under ICU surveillance; however, we will try to manage her pain and nausea on a medical floor. Certainly, she has severe malnutrition secondary to unable to eat and has had a significant weight loss and essential nominal p.o. intake during her hospital stay. She has previously agreed to DNR status and the MOLST document is in her prior chart. LALITHA Jain is trying to work on social legal issues regarding her 4-year-old daughter which is a significant concern for [place]is. Her life expectancy is days as opposed to weeks to months and she will remain here as long as her pain and nausea is uncontrolled. Her vital signs were stable and she is afebrile. ANGELA OGDEN [id number]/[facility] #: [id number] [facility] CENTERDianna
== END 2017-02-11 09:32 | disposition short-term general hospital (02) | DRG 947 ==
LOC: ED 18:16 → MED 20:27 → UNDODISIN 02-10 15:24
PROVIDERS: ADMIT Internal Medicine; ATTEND Internal Medicine Hematology & Oncology
DX: G89.3 Neoplasm related pain (acute) (chronic) (principal); E43 Unspecified severe protein-calorie malnutrition; C79.9 Secondary malignant neoplasm of unspecified site; Z68.1 Body mass index [BMI] 19.9 or less, adult; J40 Bronchitis, not specified as acute or chronic; F41.9 Anxiety disorder, unspecified; F12.90 Cannabis use, unspecified, uncomplicated; F17.210 Nicotine dependence, cigarettes, uncomplicated; K59.00 Constipation, unspecified; M54.9 Dorsalgia, unspecified; Z66 Do not resuscitate; R40.0 Somnolence; R11.2 Nausea with vomiting, unspecified; Z90.49 Acquired absence of other specified parts of digestive tract; Z88.1 Allergy status to other antibiotic agents; Z88.6 Allergy status to analgesic agent; Z86.19 Personal history of other infectious and parasitic diseases; Z88.8 Allergy status to other drugs, medicaments and biological substances; Z91.040 Latex allergy status; Z88.0 Allergy status to penicillin; Z91.041 Radiographic dye allergy status; Z93.6 Other artificial openings of urinary tract status; Z90.722 Acquired absence of ovaries, bilateral; Z85.43 Personal history of malignant neoplasm of ovary; Z90.710 Acquired absence of both cervix and uterus; Z86.73 Personal history of transient ischemic attack (TIA), and cerebral infarction without residual deficits; Z90.79 Acquired absence of other genital organ(s); Z56.0 Unemployment, unspecified; Z80.1 Family history of malignant neoplasm of trachea, bronchus and lung; Z81.2 Family history of tobacco abuse and dependence; Z51.5 Encounter for palliative care
CPT/HCPCS: 36415; 80048; 80053; 81003; 81015; 83605; 83735; 85025; 87086; 99232; 99238; A9270-GY; J1170; J2060; J2270; J2405

== ENCOUNTER 2017-02-10 15:33 | Inpatient (IN) | payer OTHER ==
[2017-02-11] MEDS ORDERED: Calcium Carbonate CHEW TAB* 500 MG (TUMS) PO PRN (11:00)
[2017-02-11] MEDS ORDERED: HYDROmorphone PCA* 20 MG/20 ML PCA.SYRING PCA SCH (12:00)
--- NOTE | 2017-02-11 12:21 | HP ---
HISTORY AND PHYSICAL: DATE OF ADMISSION: 02/11/17 REASON FOR ADMISSION: Terminal care under hospice consultation. Please refer to discharge summary on 02/11/17 and prior H and P dictated on 08/25 for details of this terminal care admission. HISTORY OF PRESENT ILLNESS: Briefly, the patient is a 36-year-old white female with metastatic stage IV ovarian cancer, admitted for intractable pain, and nausea and vomiting secondary to her terminus. She had seen Dr. Randi Wilson in consultation, who had recommended inpatient hospice comfort care, and this is her admission for those recommendations. She will remain on her reconciled medications prior as per her discharge summary and most likely remain in the hospital for the end of her life. Her vital signs had remained stable throughout her past admission from 02/06/17 to 02/11/17. She has had continued nausea and vomiting secondary to her ovarian cancer and has required Dilaudid MASONRY INSTALLER along with additional medications for her comfort measures as in the discharge summary. She will be under Dr. Ashley Mccauley for attending physician, as she is the attending at record today. She will be do not resuscitate status, both DNI and DNR as prior from her [facility] document. Ms. Apurva Caraballo will remain on her case if she has significant social work needs and we will follow along until her terminal care. ANGELA OGDEN [id number]/[facility] #: [id number] EVANGELISTA
[2017-02-11] MEDS: Ondansetron INJ* 2 MG/ML VIAL IV PRN ×2 (12:58→17:30)
[2017-02-11] MEDS: LORazepam INJ* 2 MG/ML 1 ML VIAL IV PUSH PRN ×3 (13:03→20:40)
[2017-02-11] MEDS: Methadone TAB* 5 MG PO SCH ×2 (16:02→20:39)
[2017-02-11] MEDS: Docusate CAP* 100 MG PO PRN ×2 (17:31→20:40)
[2017-02-11] MEDS: Metoclopramide IV* 5 MG/ML 2 ML VIAL IV PRN (20:41)
[2017-02-11] MEDS: Dexamethasone IV* 4 MG/ML 1 ML (4 MG) IVPB SCH (20:41)
[2017-02-11] MEDS ORDERED: Dexamethasone IV* 4 MG in NS 0.9% 50 ML* 50 ML IVPB SCH (21:00)
[2017-02-11] MEDS: HYDROmorphone PCA *HIGH DOSE* 100 MG/20 ML PCA.SYRING PCA SCH (22:33)
[2017-02-12] MEDS: LORazepam INJ* 2 MG/ML 1 ML VIAL IV PUSH PRN ×5 (02:03→21:19)
[2017-02-12] MEDS: Ondansetron INJ* 2 MG/ML VIAL IV PRN ×4 (02:04→19:42)
[2017-02-12] MEDS: Methadone TAB* 5 MG PO SCH (07:54)
[2017-02-12] MEDS: Dexamethasone IV* 4 MG/ML 1 ML (4 MG) IVPB SCH ×2 (07:54→21:32)
--- NOTE | 2017-02-12 10:31 | PN ---
Progress Note - Progress Note Date of Service: 02/12/17 SOAP: Subjective: []Pain is better but not eating. Very difficult time dealing with pending and trials of therapy for her cancer. There are other options for therapy but when discussed she is not sure she wants to endure more treatment. Constipation is still an issues. Dependent on CHAIN PERSON and using demand function continuously. Calcium Carbonate (Tums*) 1,000 mg PO Q2H PRN PRN Reason: DISCOMFORT Dexamethasone Sodium Phosphate (Decadron Iv*) 4 mg IVPB Q12HR JACQUELINE Last Admin: 02/12/17 07:54 Dose: 4 mg Docusate Sodium (Colace Cap*) 100 mg PO BID PRN PRN Reason: CONSTIPATION Last Admin: 02/11/17 20:40 Dose: 100 mg Heparin Sodium (Porcine) (Heparin Flush Port (Ivad)) 5 ml FLUSH DAILY JACQUELINE PRN Reason: Protocol Last Admin: 02/11/17 17:45 Dose: 5 ml Hydromorphone HCl (Dilaudid Pattern Designer *High Dose*) 100 mg in 20 mls @ 0 mls/hr CHAIN PERSON .change Q24H JACQUELINE; Per Protocol PRN Reason: Protocol Last Admin: 02/11/17 22:33 Dose: 6 mls/hr Lorazepam (Ativan Inj*) 1 mg IV PUSH Q2H PRN PRN Reason: ANXIETY Last Admin: 02/12/17 07:52 Dose: 1 mg Lorazepam (Ativan Tab(*)) 1 mg SL Q2H PRN PRN Reason: ANXIETY Methadone HCl (Dolophine Tab*) 15 mg PO 0900,1400,2100 [facility] Last Admin: 02/12/17 07:54 Dose: 15 mg Metoclopramide HCl (Reglan Iv*) 10 mg IV Q6H PRN PRN Reason: NAUSEA Last Admin: 02/11/17 20:41 Dose: 10 mg Ondansetron HCl (Zofran Inj*) 4 mg IV Q4H PRN PRN Reason: NAUSEA Last Admin: 02/12/17 07:53 Dose: 4 mg Objective: [] Vital Signs Temp Pulse Resp BP Pulse Ox 98.1 F 83 16 121/81 96 02/12/17 07:30 02/12/17 07:30 02/12/17 07:54 02/12/17 07:30 02/12/17 07:30 HEENT - No lesions, no LAD CTA RRR S1S2 tachy port accessed mass in abd, tender, has BS Ext w/o edema Assessment: []36 year old with metastatic ovarian cancer who has had extensive therapy and course complicated by refractory abdominal pain. She is currently on hospice. Disucssed options of pain control and hospice and further therapy down the line. She is not sure. Had very alban discussion of Doxil, would be hard road, she may not tolerate, may receive treatment feel poorly and in a few month regardless. Without therapy prognosis 2-3 months. Plan: []1. Will titrate methadone to 30 mg tid and continue to monitor CHAIN PERSON. Dilaudid last 24 hrs. CI 6 mg/hr 2. Extensive discussion about her 4 year old. Biologic father is guardian. She has meeting with dental equipment mechanic on Wednesday about will and having her friend involved in care of daughter. 3. Current plan is hospice and discharge to hospice at home. per above can re- consider. 4. Will investigate alternative treatment of constipation. 5. DNR 6. No labs at this time face time 120 min with patient and chart
[2017-02-12] MEDS ORDERED: Nicotine Inhaler* 10 MG AMP INH PRN (12:02)
[2017-02-12] MEDS ORDERED: Mouth Piece, Nicotine* 1 EACH CARTRIDGE INH PRN (12:02)
[2017-02-12] MEDS: HYDROmorphone PCA *HIGH DOSE* 100 MG/20 ML PCA.SYRING PCA SCH (12:17)
[2017-02-12] MEDS: Methadone TAB* 10 MG PO SCH ×2 (15:06→21:32)
--- NOTE | 2017-02-12 16:23 | CONS ---
CC: ANGELA Rolle; ANGELA Wong PALLIATIVE CARE CONSULTATION: DATE OF CONSULT: PRIMARY CARE PROVIDER: ANGELA Rolle REFERRING PROVIDER: ANGELA Wong HOSPITAL COURSE: This is a 36-year-old female with advanced ovarian cancer, who has been in and out of the hospital over the past 2 months with refractory abdominal pain, nausea, and constipation. On this past admission, she was admitted on 02/06/17 and she was seen by Palliative Care, Dr. Wilson, at that time and they started her on inpatient hospice. There was concern about her social dynamic disposition plan as that she does not have the support system in the home to be cared for at home and they felt that she could stay here and be inpatient hospice and pass away within the hospital. The patient was started on a SMOCKER Dilaudid pump and her pain is better controlled now. The patient is walking in the hallways, doing better. She is asking to eat, still has significant amount of pain and little small bowel movements. She has been stressed over the custody of her daughter, Hayde, and is planning to meet with a mussel farmer on 02/14/17 and would like to have her friend, Melania, present there as well to help with getting the paper work set up for when she does pass away. She has been meeting with Oncology as well and they did talk about that she can be a candidate for chemotherapy, and the patient feels she is at a crossroad as she does not have a social support and wherewithal to go to treatment, but she also does not want to feel like she is giving up. She is very tearful about her entire situation. She also is upset about wearing the DNR brace once again and is asking it for to be removed like it was last time. The patient states that her appetite has returned and she is looking for meal and states that her pain is well controlled on Dilaudid SMOCKER at this time. Otherwise, remaining review of systems is negative. PAST MEDICAL HISTORY: 1. Advanced ovarian cancer, status post chemotherapy and surgery. 2. Recurrent small bowel obstruction. 3. Chronic pain. 4. Anxiety. 5. Depression. 6. History of hydronephrosis and obstruction, has ureteral stent and nephrostomy tube in place but there are clamped off at this time. 7. History of C. difficile. 8. As mentioned, history of recurrent admissions over the past few months for refractory abdominal pain and constipation. MEDICATIONS: 1. Calcium carbonate 1000 mg every 2 hours as needed. 2. Dexamethasone 4 mg q.12 hours. 3. Colace 100 mg p.o. b.i.d. as needed. 4. Dilaudid SMOCKER. 5. Lorazepam 1 mg every 2 hours as needed. 6. Lorazepam 1 mg sublingual q.2 hours as needed. 7. Lubiprostone 24 mcg p.o. b.i.d. 8. Methadone 30 mg p.o. t.i.d. 9. Reglan 10 mg every q.6 hours. 10. Zofran 4 mg every 4 hours as needed. ALLERGIES: ADHESIVE TAPE, CARBOPLATIN, and DIAGNOSTIC AGENTS, IOHEXOL, LATEX, PENICILLIN, TAPENTADOL, DOXYCYCLINE, IV CONTRAST. FAMILY HISTORY: Her mother is alive with lung cancer. SOCIAL HISTORY: As mentioned the patient lives at home with her boyfriend who is also the father of her 3-year-old daughter, Hayde. It seems that she does not always stay with her boyfriend and she often stays and lives with friend, Melania. She is still smoking half pack per day. No alcohol use. Frequent marijuana use for her symptoms of nausea. MOLST form has been completed and confirmed as a DNR/DNI. REVIEW OF SYSTEMS: A 14-point review of systems was completed with the patient , all pertinent positives and negatives are in the history of present illness, otherwise it is negative. PHYSICAL EXAM: Vital Signs: Temperature 98.3, pulse 83, respiratory 16, oxygen saturation 96% on room air, blood pressure 121/81. General: In no acute distress. Very emotional and tearful. HEENT: Neck supple. No lymphadenopathy. She is cachectic, malnourished appearing. Pupils are equal, reactive, anicteric. Head, normocephalic. Oropharynx: Mucous membranes moist. Cardiac: Regular rate and rhythm. No murmurs, rubs or gallops. Respiratory: Diminished breath sounds with no wheezes, rhonchi, or rales. Abdomen has hypoactive bowel sounds, firm, distended with multiple masses palpated. No rebound or guarding. Extremities: No clubbing, cyanosis, or edema. +1 DPs. Neurologic: Alert and oriented x3. No focal neurologic deficits. ASSESSMENT AND PLAN: This is a 36-year-old female with advanced ovarian cancer who has had chemotherapy and surgery in the past, who now has recurrent admissions with refractory abdominal pain and constipation. The patient has a challenging social dynamic situation with a 3-year-old daughter and concern for her custody when the patient passes away, and not a very strong social support system at home; hence, the reason why she keeps getting re-admitted. The patient does not want to go to a facility, the thought initially was that when the patient initially presented that she would pass away in the hospital, though the patient has been up and ambulating and wants to go home. She is planning to meet with an disability attorney on 02/14/17 to discuss custody paper work, and I suspect once she has that done, that she will leave. We have our child welfare social worker here, Apurva, speaking with her and trying to keep her comfortable while she is here and to focus on a safe discharge plan and potentially speaking with her friends to discuss home with them. At this time, the enema helped her with her issues of constipation on the last admission, we will start that again. I did speak with Dr. Thomas regarding her bowel regimen and starting her on Amitiza. He is familiar with and he is going to start that for her constipation and see if she tolerates that and that it could effective for her. We are also going to take off her DNR brace as this is more distressing for her emotionally and we will notify all those who are caring for her that she is DNR/DNI and that this brace should not be on if she does have a future admission. Also, we will provide a nicotine inhaler if the patient is not able to go outside to smoke. Thank you for this consultation. I will follow along with you. TIME SPENT: Greater than 90 minutes spent doing the consultation, more than half the time spent in direct patient contact. [id number]/[facility] #: [id number] EVANGELISTA
[2017-02-12] MEDS: LUBIPROSTONE 24 MCG PO SCH (21:31)
[2017-02-12] MEDS: Docusate CAP* 100 MG PO PRN (21:33)
[2017-02-13] MEDS: LORazepam INJ* 2 MG/ML 1 ML VIAL IV PUSH PRN ×6 (00:41→23:17)
[2017-02-13] MEDS: Ondansetron INJ* 2 MG/ML VIAL IV PRN ×3 (00:43→18:17)
[2017-02-13] MEDS: HYDROmorphone PCA *HIGH DOSE* 100 MG/20 ML PCA.SYRING PCA SCH ×2 (02:42→17:57)
[2017-02-13] MEDS: Metoclopramide IV* 5 MG/ML 2 ML VIAL IV PRN ×2 (03:17→20:35)
[2017-02-13] MEDS: Methadone TAB* 10 MG PO SCH ×3 (07:49→20:27)
[2017-02-13] MEDS: Dexamethasone IV* 4 MG/ML 1 ML (4 MG) IVPB SCH ×2 (07:50→20:19)
[2017-02-13] MEDS: LUBIPROSTONE 24 MCG PO SCH ×2 (07:50→20:26)
[2017-02-13] MEDS: LORazepam TAB(*) 1 MG SL PRN ×2 (12:22→23:11)
[2017-02-14] MEDS: LORazepam INJ* 2 MG/ML 1 ML VIAL IV PUSH PRN ×3 (01:57→12:42)
[2017-02-14] MEDS: LORazepam TAB(*) 1 MG SL PRN ×3 (02:09→21:23)
[2017-02-14] MEDS: Ondansetron INJ* 2 MG/ML VIAL IV PRN ×4 (04:29→19:06)
[2017-02-14] MEDS: Metoclopramide IV* 5 MG/ML 2 ML VIAL IV PRN ×2 (06:51→12:42)
[2017-02-14] MEDS: Methadone TAB* 10 MG PO SCH ×3 (10:00→21:24)
[2017-02-14] MEDS: LUBIPROSTONE 24 MCG PO SCH ×2 (10:00→21:24)
[2017-02-14] MEDS: Dexamethasone IV* 4 MG/ML 1 ML (4 MG) IVPB SCH ×2 (10:01→21:23)
[2017-02-14] MEDS: Sodium Phosphate ADULT ENEMA* 118 ml bottle PR PRN (10:05)
[2017-02-14] MEDS: Docusate CAP* 100 MG PO PRN (10:05)
[2017-02-14] MEDS: HYDROmorphone PCA *HIGH DOSE* 100 MG/20 ML PCA.SYRING PCA SCH (12:42)
[2017-02-15] MEDS: LORazepam TAB(*) 1 MG SL PRN ×2 (00:50→17:05)
[2017-02-15] MEDS: Ondansetron INJ* 2 MG/ML VIAL IV PRN (02:59)
[2017-02-15] MEDS: LORazepam INJ* 2 MG/ML 1 ML VIAL IV PUSH PRN (05:57)
[2017-02-15] MEDS: Metoclopramide IV* 5 MG/ML 2 ML VIAL IV PRN (06:11)
[2017-02-15] MEDS ORDERED: Dexamethasone IV* 4 MG/ML 1 ML (4 MG) PO SCH (09:36)
[2017-02-15] MEDS ORDERED: HYDROmorphone PCA *HIGH DOSE* 100 MG/20 ML PCA.SYRING PCA SCH (09:37)
--- NOTE | 2017-02-15 09:56 | PN ---
Progress Note - Progress Note Date of Service: 02/15/17 SOAP: Subjective: []Better. Still with some nausea, has GERD that is very bad. Pain is controlled. Met with assistant district attorney yesterday and has will being written. Wants to get home with hospice and wants to be home in time to take her daughter to [place] [facility]. Calcium Carbonate (Tums*) 1,000 mg PO Q2H PRN PRN Reason: DISCOMFORT Device (Nicotine Mouth Piece*) 1 each INH .USE WITH NICOTROL PRN PRN Reason: CRAVING Dexamethasone Sodium Phosphate (Decadron Iv*) 4 mg PO Q12HR JACQUELINE Docusate Sodium (Colace Cap*) 100 mg PO BID PRN PRN Reason: CONSTIPATION Last Admin: 02/14/17 10:05 Dose: 100 mg Heparin Sodium (Porcine) (Heparin Flush Port (Ivad)) 5 ml FLUSH DAILY JACQUELINE PRN Reason: Protocol Last Admin: 02/15/17 09:43 Dose: Not Given Hydromorphone HCl (Dilaudid Internal Combustion Engine Assembler *High Dose*) 100 mg in 20 mls @ 0 mls/hr ENROBING MACHINE OPERATOR .change Q24H JACQUELINE; Per Protocol PRN Reason: Protocol Lorazepam (Ativan Tab(*)) 1 mg SL Q2H PRN PRN Reason: ANXIETY Last Admin: 02/15/17 00:50 Dose: 1 mg Lorazepam (Ativan Tab(*)) 2 mg PO DAILY [facility] Lubiprostone (Amitiza) 24 mcg PO BID [facility] Last Admin: 02/14/17 21:24 Dose: 24 mcg Methadone HCl (Dolophine Tab*) 30 mg PO 0900,1400,2100 [facility] Last Admin: 02/14/17 21:24 Dose: 30 mg Metoclopramide HCl (Reglan Tab*) 10 mg PO TID [facility] Nicotine (Nicotine Inhaler*) 10 mg INH Q2H PRN PRN Reason: CRAVING Ondansetron HCl (Zofran Tab*) 4 mg PO Q4H PRN PRN Reason: NAUSEA Pantoprazole Sodium (Protonix Tab (Nf)) 40 mg PO BID [facility] Sodium Biphosphate/Sodium Phosphate (Fleet Enema*) 1 bottle ND TID PRN PRN Reason: CONSTIPATION Last Admin: 02/14/17 10:05 Dose: 1 bottle Objective: [] Vital Signs Temp Pulse Resp BP Pulse Ox 98.6 F 82 16 101/65 94 02/14/17 07:49 02/14/17 07:49 02/15/17 06:56 02/14/17 07:49 02/14/17 07:49 HEENT - No lesions, no LAD CTA RRR S1S2 tachy port accessed mass in abd, tender, has BS Ext w/o edema Assessment: []36 year old with metastatic ovarian cancer who has had extensive therapy and course complicated by refractory abdominal pain. She is currently on hospice. Discussed options of pain control and hospice goal is to get home this week [place] [facility]. She has been compliant with medication changes and pain controlled at this time on Methadone 90 mg per day. Plan: []1. Stop CI Dilaudid, noe on demand today, go to all po tomorrow. 2. Has had progress on social issues, has will written. 3. Current plan is hospice and discharge to hospice at home. 4. Change to all po medications bar Dilaudid. - Reglan 10 mg po standing - Zofran ODT 4 mg q4 prn - Ativan 1 mg q 2 SL and 2 mg at bedtime po 5. DNR 6. Still constipated, will continue Lubiprostone 7. Goal is discharge next 48 hrs
[2017-02-15] MEDS: Methadone TAB* 10 MG PO SCH ×3 (10:11→23:11)
[2017-02-15] MEDS: LUBIPROSTONE 24 MCG PO SCH ×2 (10:12→23:12)
[2017-02-15] MEDS: Ondansetron TAB* 4 MG PO PRN ×2 (10:13→17:35)
[2017-02-15] MEDS: Dexamethasone TAB* 4 MG PO SCH ×2 (11:03→23:12)
[2017-02-15] MEDS: Dexamethasone IV* 4 MG/ML 1 ML (4 MG) IVPB SCH (11:13)
[2017-02-15] MEDS: Metoclopramide TAB* 10 MG PO SCH ×2 (13:35→23:12)
[2017-02-15] MEDS: Omeprazole CAP* 20 MG PO SCH (17:05)
[2017-02-15] MEDS: Docusate CAP* 100 MG PO PRN (17:35)
[2017-02-15] MEDS: Sodium Phosphate ADULT ENEMA* 118 ml bottle PR PRN (22:18)
[2017-02-16] MEDS: LORazepam TAB(*) 1 MG PO SCH ×2 (01:00→21:17)
[2017-02-16] MEDS: Ondansetron TAB* 4 MG PO PRN ×2 (04:22→09:11)
[2017-02-16] MEDS: LORazepam TAB(*) 1 MG SL PRN ×2 (05:40→07:52)
[2017-02-16 06:42] VITALS: BP 120/75
[2017-02-16] MEDS: Omeprazole CAP* 20 MG PO SCH ×2 (07:53→16:55)
[2017-02-16] MEDS: Methadone TAB* 10 MG PO SCH ×3 (09:10→21:20)
[2017-02-16] MEDS: Dexamethasone TAB* 4 MG PO SCH ×2 (09:11→21:21)
[2017-02-16] MEDS: Metoclopramide TAB* 10 MG PO SCH ×3 (09:11→21:19)
[2017-02-16] MEDS: LUBIPROSTONE 24 MCG PO SCH ×2 (09:12→21:15)
[2017-02-16] MEDS ORDERED: HYDROmorphone TAB* 4 MG PO PRN ×3 (10:55→11:33)
[2017-02-16] MEDS ORDERED: HYDROmorphone* 1 MG/ML 1 ML SYR IV PRN (10:58)
[2017-02-16] MEDS: Ondansetron ODT TAB* 4 MG PO PRN ×2 (14:51→21:10)
[2017-02-16] MEDS ORDERED: Magnesium Hydroxide LIQ* 30 ML UDC PO PRN (16:37)
[2017-02-16] MEDS ORDERED: Magnesium Hydroxide LIQ* 30 ML UDC PO ONE (17:00)
[2017-02-16] MEDS ORDERED: Trimethobenzamide CAP* 300 MG PO SCH (17:00)
[2017-02-16] MEDS: Trimethobenzamide CAP* 300 MG PO SCH (21:19)
[2017-02-17] MEDS: Ondansetron ODT TAB* 4 MG PO PRN ×2 (02:00→10:37)
[2017-02-17] MEDS: Sodium Phosphate ADULT ENEMA* 118 ml bottle PR PRN (02:51)
[2017-02-17] MEDS: LUBIPROSTONE 24 MCG PO SCH (07:45)
[2017-02-17] MEDS: Methadone TAB* 10 MG PO SCH (07:46)
[2017-02-17] MEDS: LORazepam TAB(*) 1 MG SL PRN (07:47)
[2017-02-17] MEDS: Metoclopramide TAB* 10 MG PO SCH (07:47)
[2017-02-17] MEDS: Trimethobenzamide CAP* 300 MG PO SCH (07:47)
[2017-02-17] MEDS: Omeprazole CAP* 20 MG PO SCH (07:47)
[2017-02-17] MEDS: Dexamethasone TAB* 4 MG PO SCH (07:48)
== END 2017-02-17 11:00 | disposition hospice, home (50) | DRG 861 ==
LOC: MED 15:35 → UNDOADMIN 15:35 → MED 02-11 09:32
PROVIDERS: ADMIT Internal Medicine; ATTEND Internal Medicine Hematology & Oncology
DX: G89.3 Neoplasm related pain (acute) (chronic) (principal); C79.9 Secondary malignant neoplasm of unspecified site; C56.9 Malignant neoplasm of unspecified ovary; R11.2 Nausea with vomiting, unspecified; K59.00 Constipation, unspecified; F17.210 Nicotine dependence, cigarettes, uncomplicated; F32.9 Major depressive disorder, single episode, unspecified; F41.9 Anxiety disorder, unspecified; Z79.891 Long term (current) use of opiate analgesic; Z79.899 Other long term (current) drug therapy; Z91.041 Radiographic dye allergy status; Z91.040 Latex allergy status; Z88.8 Allergy status to other drugs, medicaments and biological substances; Z91.048 Other nonmedicinal substance allergy status; Z80.1 Family history of malignant neoplasm of trachea, bronchus and lung
CPT/HCPCS: 99222; 99232; 99233; 99239; 99406; A9270-GY; J1100; J1170; J1642; J2060; J2405